=== PATIENT | male | born 1995 | race Caucasian/White ===

== ENCOUNTER 2018-03-24 19:11 | Emergency (ER) | payer BC, OTHER ==
[2018-03-24] MEDS: NS 1,000 ML IV (16:30)
[2018-03-24 16:45] LABS: HEMATOCRIT 44.9 % (42.0-52.0); HEMOGLOBIN 15.7 g/dl (13.5-17.5); MEAN CORPUSCULAR HEMOGLOBIN 30.7 pg (27.0-33.0); MEAN CORPUSCULAR VOLUME 87.9 fl (80.0-96.0); PLATELET COUNT, AUTOMATED 268 10^3/uL (150-450); RED BLOOD COUNT 5.11 10^6/uL (4.30-6.10); WHITE BLOOD COUNT 9.7 10^3/uL (4.0-10.0)
[2018-03-24 17:36] LABS: ALBUMIN 4.5 GM/DL (3.2-5.2); ALBUMIN/GLOBULIN RATIO 1.55 (1.00-1.93); ALKALINE PHOSPHATASE 60 U/L (45-117); ALT/SGPT 23 U/L (12-78); ANION GAP 12 MEQ/L (8-16); AST/SGOT 17 U/L (7-37); BILIRUBIN,DIRECT 0.2 MG/DL (0.0-0.2); BILIRUBIN,TOTAL 0.7 MG/DL (0.2-1.0); BLOOD UREA NITROGEN 10 MG/DL (7-18); CALCIUM LEVEL 9.1 MG/DL (8.5-10.1); CARBON DIOXIDE LEVEL 28 MEQ/L (21-32); CHLORIDE LEVEL 103 MEQ/L (98-107); CREATININE FOR GFR 0.77 MG/DL (0.70-1.30); ETHYL ALCOHOL (ETHANOL) 0.206 % (0.000-0.010); GLOMERULAR FILTRATION RATE > 60.0 (>60); GLUCOSE, FASTING 88 MG/DL (70-100); SALICYLATE LEVEL < 1.7 MG/DL (5.0-30.0); SODIUM LEVEL 143 MEQ/L (136-145); TOTAL PROTEIN 7.4 GM/DL (6.4-8.2)
[2018-03-24 17:46] LABS: ACETAMINOPHEN LEVEL < 2.0 UG/ML (10.0-30.0)
[2018-03-24 22:36] LABS: AMPHETAMINES LEVEL URINE NEGATIVE (NEGATIVE); BARBITURATES URINE NEGATIVE (NEGATIVE); BENZODIAZEPINES URINE NEGATIVE (NEGATIVE); CANNABINOIDS URINE NEGATIVE (NEGATIVE); COCAINE METABOLITE URINE NEGATIVE (NEGATIVE); METHADONE URINE NEGATIVE (NEGATIVE); OPIATES URINE NEGATIVE (NEGATIVE); PHENCYCLIDINE URINE NEGATIVE (NEGATIVE)
== END 2018-03-24 22:50 | disposition home or self-care (01) ==
LOC: M ED 19:11
DX: F43.0 Acute stress reaction (principal); F32.9 Major depressive disorder, single episode, unspecified; F10.129 Alcohol abuse with intoxication, unspecified; F84.0 Autistic disorder; F91.3 Oppositional defiant disorder; Z88.8 Allergy status to other drugs, medicaments and biological substances
CPT/HCPCS: G0480

== ENCOUNTER 2019-03-19 16:49 | Emergency (ER) | payer BC, SELFPAY ==
[~2019-03-19] VITALS: Ht 175.3 cm; Wt 67.6 kg
[2019-03-19 17:31] LABS: HEMATOCRIT 43.7 % (42.0-52.0); HEMOGLOBIN 15.2 g/dl (13.5-17.5); MEAN CORPUSCULAR HGB CONC 34.8 g/dl (32.0-36.5); MEAN CORPUSCULAR VOLUME 86.4 fl (80.0-96.0); PLATELET COUNT, AUTOMATED 290 10^3/uL (150-450); RED BLOOD COUNT 5.06 10^6/uL (4.30-6.10); WHITE BLOOD COUNT 7.9 10^3/uL (4.0-10.0)
[2019-03-19 18:11] LABS: ACETAMINOPHEN LEVEL < 2.0 UG/ML (10.0-30.0); ALBUMIN 4.3 GM/DL (3.2-5.2); ALT/SGPT 22 U/L (12-78); BILIRUBIN,DIRECT 0.3 MG/DL (0.0-0.2); BILIRUBIN,TOTAL 1.2 MG/DL (0.2-1.0); BLOOD UREA NITROGEN 14 MG/DL (7-18); CALCIUM LEVEL 9.9 MG/DL (8.5-10.1); CARBON DIOXIDE LEVEL 28 MEQ/L (21-32); CHLORIDE LEVEL 104 MEQ/L (98-107); CREATININE FOR GFR 0.85 MG/DL (0.70-1.30); ETHYL ALCOHOL (ETHANOL) < 0.003 % (0.000-0.010); GLOMERULAR FILTRATION RATE > 60.0 (>60); GLUCOSE, FASTING 85 MG/DL (70-100); SALICYLATE LEVEL < 1.7 MG/DL (5.0-30.0); SODIUM LEVEL 140 MEQ/L (136-145); TOTAL PROTEIN 7.6 GM/DL (6.4-8.2)
[2019-03-19 18:18] LABS: AMPHETAMINES LEVEL URINE NEGATIVE (NEGATIVE); BARBITURATES URINE NEGATIVE (NEGATIVE); BENZODIAZEPINES URINE NEGATIVE (NEGATIVE); CANNABINOIDS URINE POSITIVE (NEGATIVE); COCAINE METABOLITE URINE NEGATIVE (NEGATIVE); METHADONE URINE NEGATIVE (NEGATIVE); OPIATES URINE NEGATIVE (NEGATIVE); PHENCYCLIDINE URINE NEGATIVE (NEGATIVE)
[2019-03-20] MEDS ORDERED: NAPROXEN 250 MG TAB PO ONE (00:30)
[2019-03-20] MEDS ORDERED: LORazepam 1 MG TAB PO STA (01:33)
[2019-03-20] MEDS ORDERED: diphenhydrAMINE INJ 50MG/ML VIAL (J1200) IM STA (01:54)
[2019-03-20] MEDS ORDERED: HALOPERIDOL 5 MG/ML VIAL (J1630) IM STA (01:54)
[2019-03-20 03:07] VITALS: BP 153/106
--- NOTE | 2019-03-20 07:08 | REP ---
Clinical: Trauma left hand . Technique: AP, lateral views left hand . Findings: Lateral view demonstrates soft tissue swelling overlying the metacarpophalangeal joints. No obvious acute fracture, subcutaneous emphysema or foreign body appreciated. Impression: Swelling at the MCP level. No acute fracture or dislocation. Electronically Signed by Rajesh Gallegos MD 03/20/2019 06:59 A
--- NOTE | 2019-03-20 07:11 | ECGEPIP ---
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
[2019-04-06] MEDS ORDERED: FLUO20CA8 PO (15:23)
[2019-04-06] MEDS ORDERED: TRAZ-163 PO (15:23)
== END 2019-03-20 03:08 | disposition short-term general hospital (02) ==
LOC: M ED 16:49
DX: F33.9 Major depressive disorder, recurrent, unspecified (principal); R45.851 Suicidal ideations; I45.19 Other right bundle-branch block; R22.32 Localized swelling, mass and lump, left upper limb; F84.0 Autistic disorder; Z88.8 Allergy status to other drugs, medicaments and biological substances
CPT/HCPCS: 73120; 80048; 80076; 80307; 84443; 85027; 93005; 96372; 99285; G0480; J1200; J1630

== ENCOUNTER 2019-04-02 11:30 | Emergency (ER) | payer BC, SELFPAY ==
[~2019-04-02] VITALS: Ht 175.3 cm; Wt 69.0 kg
[2019-04-02 12:09] LABS: HEMATOCRIT 45.8 % (42.0-52.0); HEMOGLOBIN 15.7 g/dl (13.5-17.5); MEAN CORPUSCULAR HEMOGLOBIN 30.1 pg (27.0-33.0); MEAN CORPUSCULAR HGB CONC 34.3 g/dl (32.0-36.5); MEAN CORPUSCULAR VOLUME 87.9 fl (80.0-96.0); PLATELET COUNT, AUTOMATED 407 10^3/uL (150-450); RED BLOOD COUNT 5.21 10^6/uL (4.30-6.10); WHITE BLOOD COUNT 9.7 10^3/uL (4.0-10.0)
[2019-04-02 12:42] LABS: ACETAMINOPHEN LEVEL < 2.0 UG/ML (10.0-30.0); ALBUMIN 4.5 GM/DL (3.2-5.2); ALT/SGPT 18 U/L (12-78); BILIRUBIN,DIRECT 0.2 MG/DL (0.0-0.2); BILIRUBIN,TOTAL 0.9 MG/DL (0.2-1.0); BLOOD UREA NITROGEN 10 MG/DL (7-18); CALCIUM LEVEL 9.4 MG/DL (8.5-10.1); CARBON DIOXIDE LEVEL 30 MEQ/L (21-32); CHLORIDE LEVEL 104 MEQ/L (98-107); CREATININE FOR GFR 0.88 MG/DL (0.70-1.30); ETHYL ALCOHOL (ETHANOL) < 0.003 % (0.000-0.010); GLOMERULAR FILTRATION RATE > 60.0 (>60); GLUCOSE, FASTING 93 MG/DL (70-100); POTASSIUM SERUM 4.4 MEQ/L (3.5-5.1); SALICYLATE LEVEL < 1.7 MG/DL (5.0-30.0); SODIUM LEVEL 140 MEQ/L (136-145); TOTAL PROTEIN 7.9 GM/DL (6.4-8.2)
[2019-04-02 12:47] LABS: AMPHETAMINES LEVEL URINE NEGATIVE (NEGATIVE); BARBITURATES URINE NEGATIVE (NEGATIVE); BENZODIAZEPINES URINE NEGATIVE (NEGATIVE); CANNABINOIDS URINE POSITIVE (NEGATIVE); COCAINE METABOLITE URINE NEGATIVE (NEGATIVE); METHADONE URINE NEGATIVE (NEGATIVE); OPIATES URINE NEGATIVE (NEGATIVE); PHENCYCLIDINE URINE NEGATIVE (NEGATIVE)
[2019-04-02 14:44] VITALS: BP 131/75
[2019-04-06] MEDS ORDERED: TRAZ-163 PO (15:23)
[2019-04-06] MEDS ORDERED: FLUO20CA8 PO (15:23)
[2019-04-18] MEDS ORDERED: TRAZ-163 PO (09:03)
[2019-04-18] MEDS ORDERED: FLUO10CA8 PO (09:03)
== END 2019-04-02 14:55 | disposition home or self-care (01) ==
LOC: M ED 11:30
DX: F32.9 Major depressive disorder, single episode, unspecified (principal); F12.10 Cannabis abuse, uncomplicated; Z79.899 Other long term (current) drug therapy; Z88.8 Allergy status to other drugs, medicaments and biological substances
CPT/HCPCS: 36415; 80048; 80076; 80307; 84443; 85027; 99284; G0480

== ENCOUNTER 2019-04-05 21:59 | Inpatient (IN) | payer BC, MEDICAID ==
[~2019-04-05] VITALS: Ht 177.8 cm; Wt 68.4 kg
[2019-04-06] MEDS ORDERED: METOCLOPRAMIDE INJ 10MG/2ML VIAL (J2765) IV ONE (00:30)
[2019-04-06] MEDS ORDERED: KETOROLAC 30 MG/ML VIAL (J1885) IV ONE (00:30)
[2019-04-06 01:09] LABS: HEMATOCRIT 40.2 % (42.0-52.0); MEAN CORPUSCULAR HEMOGLOBIN 30.8 pg (27.0-33.0); MEAN CORPUSCULAR HGB CONC 34.8 g/dl (32.0-36.5); MEAN CORPUSCULAR VOLUME 88.4 fl (80.0-96.0); PLATELET COUNT, AUTOMATED 328 10^3/uL (150-450); RED BLOOD COUNT 4.55 10^6/uL (4.30-6.10)
[2019-04-06 01:48] LABS: ACETAMINOPHEN LEVEL < 2.0 UG/ML (10.0-30.0); ALBUMIN 4.2 GM/DL (3.2-5.2); ALT/SGPT 18 U/L (12-78); BILIRUBIN,DIRECT 0.2 MG/DL (0.0-0.2); BILIRUBIN,TOTAL 0.7 MG/DL (0.2-1.0); BLOOD UREA NITROGEN 11 MG/DL (7-18); CALCIUM LEVEL 8.9 MG/DL (8.5-10.1); CARBON DIOXIDE LEVEL 29 MEQ/L (21-32); CHLORIDE LEVEL 104 MEQ/L (98-107); CREATININE FOR GFR 0.68 MG/DL (0.70-1.30); ETHYL ALCOHOL (ETHANOL) < 0.003 % (0.000-0.010); GLOMERULAR FILTRATION RATE > 60.0 (>60); GLUCOSE, FASTING 96 MG/DL (70-100); POTASSIUM SERUM 4.5 MEQ/L (3.5-5.1); SALICYLATE LEVEL < 1.7 MG/DL (5.0-30.0); SODIUM LEVEL 139 MEQ/L (136-145); THYROID STIMULATING HORMONE 0.737 uIU/ML (0.358-3.740); TOTAL PROTEIN 7.2 GM/DL (6.4-8.2)
[2019-04-06 02:33] LABS: AMPHETAMINES LEVEL URINE NEGATIVE (NEGATIVE); BARBITURATES URINE NEGATIVE (NEGATIVE); BENZODIAZEPINES URINE NEGATIVE (NEGATIVE); CANNABINOIDS URINE POSITIVE (NEGATIVE); COCAINE METABOLITE URINE NEGATIVE (NEGATIVE); METHADONE URINE NEGATIVE (NEGATIVE); OPIATES URINE NEGATIVE (NEGATIVE); PHENCYCLIDINE URINE NEGATIVE (NEGATIVE)
[2019-04-06] MEDS ORDERED: RISP2TAB3 PO (15:23)
[2019-04-06] MEDS ORDERED: FLUO20CA20 PO (15:23)
[2019-04-06] MEDS ORDERED: TRAZ-257 PO (15:23)
[2019-04-06] MEDS ORDERED: FLUoxetine 20 MG CAP PO ONE (15:30)
[2019-04-06] MEDS ORDERED: traZODone 100 MG TAB PO ONE ×2 (15:30→21:00)
[2019-04-06] MEDS ORDERED: risperiDONE 2 MG TAB PO ONE ×2 (15:30→21:00)
[2019-04-07] MEDS ORDERED: FLUoxetine 20 MG CAP PO ONE ×3 (09:45→17:00)
[2019-04-07] MEDS ORDERED: HYDR50TA30 PO (10:27)
[2019-04-07] MEDS ORDERED: MAALOX 30 ML SUSP *UDC PO PRN (11:30)
[2019-04-07] MEDS ORDERED: ACETAMINOPHEN TAB 650MG DOSE (2X325MG) PO PRN (11:30)
[2019-04-07] MEDS ORDERED: MOM 30ML SUSPENSION UDC PO PRN (11:30)
[2019-04-07] MEDS ORDERED: NICOTINE 21MG/24HR 1 EA TRANSDERMAL TD PRN (11:30)
[2019-04-07 12:31] VITALS: BP 132/67
--- NOTE | 2019-04-07 12:32 | HPEPDOC ---
General Date of Admission Apr 07, 2019 at 11:21 Date of Service: Apr 07, 2019 Attending Physician: JULY ZEE MD Chief Complaint The patient is a 24-year-old male admitted with a reason for visit of Unspecified Depression. History of Present Illness Patient is a 24-year-old male, past medical history significant for depression and anxiety and polysubstance abuse with THC whose mother brought to the emergency room on account of concerns for suicidal ideation. Patient also reported seeing and hearing things. On assessment, he denies any physical symptoms other than back pain along his spine. He denies any radicular symptoms. He denies chills, fever, chest pain, shortness of breath. Home Medications Scheduled Fluoxetine Hcl (Fluoxetine HCl) 20 Mg Capsule, 20 MG PO QPM, (Reported) TAKES AT 1700 Risperidone (Risperidone) 2 Mg Tablet, 2 MG PO QHS, (Reported) Scheduled PRN Hydroxyzine HCl (Hydroxyzine HCl) 50 Mg Tablet, 50 MG PO Q4H PRN for ANXIETY, (Reported) Trazodone HCl (Trazodone HCl) 100 Mg Tablet, 100 MG PO QHS PRN for SLEEP, (Reported) Allergies Coded Allergies: atomoxetine (Verified Adverse Reaction, Severe, TACHYCARDIA, 03/19/19) aripiprazole (Verified Adverse Reaction, Mild, HAULLICINATION, 03/19/19) escitalopram (Verified Adverse Reaction, Mild, ALTERED MENTAL STATUS, 03/19/19) Past Medical History Medical History Depression Anxiety Surgical History Kidney stone removal Family History Denies any family history Social History Smokes cigarettes, drinks alcohol, also admits to THC use A-FIB/CHADSVASC A-FIB History Current/History of A-Fib/PAF?: No Current PO Anticoag Therapy: No Review of Systems Other systems A 10 point pertinent review of systems was completed, negative except as stated in the history of presenting illness. Physical Examination Other physical findings GENERAL: NAD SKIN : Warm, dry intact HEENT: Atraumatic, normocephalic, PERRL, moist mucous membrane CARDIOVASCULAR: Regular rate and rhythm, S1S2, no JVD, no edema, distal pulses + and palpable RESP: CTAB, no accessory muscle use noted ABDOMEN: BS+ non distended non tender MS: no joint deformities NEURO: Alert and oriented x 3, CN2-12 grossly intact PSYCH: no anxiety or agitation, depressed affect. Vital Signs Vital Signs Date Time Temp Pulse Resp B/P (MAP) Pulse Ox O2 Delivery O2 Flow Rate FiO2 04/07/19 06:39 98.2 73 20 109/58 (75) 96 Room Air Assessment/Plan Back pain Suicidal ideation Acute psychosis. Polysubstance abuse with THC Plan Patient currently has no medical comorbidities requiring active follow-up and management He will be prescribed as needed. Ibuprofen for complaints of pain to his back Management of acute psychosis, suicidal ideation and polysubstance abuse by primary team Plan / VTE VTE Prophylaxis Ordered?: No VTE Exclusion Mechanical Proph: Low Risk for VTE RODRIGO CHAUDHARIP Apr 07, 2019 12:32
[2019-04-07] MEDS ORDERED: IBUPROFEN 400 MG TAB PO PRN (13:45)
[2019-04-07] MEDS: traZODone 50 MG TAB PO PRN (21:59)
[2019-04-08 06:57] VITALS: BP 103/59
--- NOTE | 2019-04-08 10:43 | IPNPDOC ---
Date Seen The patient was seen on 04/08/19. Progress Note SUBJECTIVE: Pt c/o nightmares and unable to get good sleep. He denies any headache, sob, chest pain, cough, nausea, vomiting, abd pain OBJECTIVE: PHYSICAL EXAMINATION: VITALS: PLS SEE BELOW GENERAL: NAD SKIN : Warm, dry intact HEENT: Atraumatic, normocephalic, PERRL, moist mucous membrane CARDIOVASCULAR: Regular rate and rhythm, S1S2, no JVD, no edema, distal pulses + and palpable RESP: CTAB, no accessory muscle use noted ABDOMEN: BS+ non distended non tender MS: no joint deformities NEURO: Alert and oriented x 3, CN2-12 grossly intact PSYCH: no anxiety or agitation, depressed affect. LABORATORY DATA, IMAGING STUDIES,MICROBIOLOGY: PLS SEE BELOW ASSESSMENT AND PLAN: Patient is a 24-year-old male, past medical history significant for depression and anxiety and polysubstance abuse with THC whose mother brought to the emergency room on account of concerns for suicidal ideation. Patient also reported seeing and hearing things. On assessment, he denies any physical symptoms other than back pain along his spine. He denies any radicular symptoms. He denies chills, fever, chest pain, shortness of breath. Insomnia with c/o nightmares defer to psychiatrist Back pain prn ibuprofen Suicidal ideation defer to primary team Acute psychosis. defer to primary team Polysubstance abuse with THC cessation counselling provided. VS, I&O, 24H, Fishbone Vital Signs/I&O Vital Signs Date Time Temp Pulse Resp B/P (MAP) Pulse Ox O2 Delivery O2 Flow Rate FiO2 04/08/19 06:57 98.1 72 12 103/59 (74) 04/07/19 06:39 96 Room Air EL MCWILLIAMS MD Apr 08, 2019 09:09
--- NOTE | 2019-04-08 14:45 | MHHPEPDOC ---
[facility] History & Physical History and Physical DATE OF ADMISSION: Apr 07, 2019 at 11:21 New Patient Aleks Palumbo Age 24 Male Date of : 1995 Date of Service: 04/08/2019 Chief Complaint "My parents wanted me here." History of Present Illness The patient, a 24-year-old man presented to [facility] after being brought in after reportedly stating suicidal thoughts to his parents that were fairly concerning. Upon presentation, the patient expressed a fair amount of lassitude towards his suicidal thoughts. He has been recently admitted to inpatient units in [place], [place] and was deemed a high risk for suicide. When the patient was met with, he had a fairly bizarre flat affect, describing his situation in a fairly disconnected way. He relayed a history of fairly severe depressed mood with low energy, concentration problems, loss of interest and suicidal thoughts alternating with episodes of elation with impulsivity, driving his car very quickly that are difficult to tease apart from episodic versus chronic impulsivity. He describes having difficulty during periods of weeks where he will have distractibility and decreased need for sleep. Review Of Systems Depression: As above. Anxiety: The patient denies any excessive worry associated with physical symptoms. They deny any experience of discreet panic in the past. Leigh Ann: As above. Psychotic: The patient denies any experiences of auditory or visual hallucinations. They deny any episodes of paranoia or delusional thinking in the past Trauma: The patient denies any traumatic events associated with nightmares or intrusive thoughts. Borderline: The patient reports a history of being diagnosed with borderline, but when asked to describe his symptoms, he describes "I guess I don't." Past Psychiatric History The patient has a history of reported three inpatient admissions with diagnoses of bipolar and borderline personality disorder. He reports being tried on Prozac and risperidone on his most recent inpatient admission at [facility] and reports that he currently has no followup. When asked specifics about medications, he consistently defers to his "mother." He reports being tried on Abilify, but is allergic. He described that he doesn't know the reaction. Chart indicates a history of bad reactions to atomoxetine and Lexapro in the past. Allergies Please see below. Family Psychiatric History The patient denies/is unaware any history of mental health history including addictions and suicide. Social History The patient grew up in the local area, reportedly [place]. He described that he did not have any significant abuse growing up and that he currently lives with his parents. He is unemployed, applying for social security dis ability benefits. He described that he had attempted to graduate from high school, but had missed a significant amount of time and is short one math credit from graduating. He denies any significant legal troubles at this time. Substance Abuse History The patient reports fairly heavy consistent cannabis use, roughly 4 to 5 grams of dry herb per day. He reports previously being in rehab for alcohol of which he states he does not drink consistently at this time. He reports that he only drinks monthly, but will drink more than five at a time. He denies consistently using any illicit substances other than cannabis Medical History Patient has no significant past medical history. Mental Status Examination General: Well dressed with good hygiene Speech: Responsive only to questions Thought processes: Linear and logical MSK: Smooth and coordinated gait, no signs of tremors or involuntary orofacial movements Thought content: Lassitude Abstract reasoning, and computation: Intact Description of associations: [place] Description of abnormal or psychotic thoughts: Denies any suicidal thoughts at this time, but states that if he did, he wouldn't tell this provider. Denies any homicidal ideation. Denies any auditory or visual hallucination. Does not appear to be responding to internal stimuli and does not appear to be endorsing any bizarre or paranoid ideation Judgment: Poor Insight: Poor Orientation: Alert and orientated 3 Cognition: Grossly normal Recent and remote memory: Intact Attention span and concentration: Intact Fund of knowledge: Adequate Mood: "fine" Affect: Profoundly blunted Diagnoses Bipolar disorder, unspecified. Cannabis use disorder, severe. Alcohol use disorder, severe. Assessment and Plan The patient, a 24-year-old man with multiple inpatient admissions and reported poor response to treatment. He does appear to be a relatively poor historian, which is unclear whether is related to being guarded or whether he generally has difficulty remembering. The patient does have some elements of bipolar that are difficult to tease out as the patient is fairly concrete. It is clear that he is likely suffering a fairly severe depressive episode and his lassitude related to suicide is fairly concerning. Disposition The patient will need greater than two midnights of inpatient treatment in order to treat his severe depression and ensure his safety due to recent concerning ideation and behaviors. Problem List 1. Depression. 2. Substance use. 3. Risk for suicide. Initial Treatment Plan 1. Patient was admitted on a 9.39 legal status. 2. Complete history was obtained. 3. With patients permission, family will be contacted and database will be expanded. 4. Patients medication regimen will be reviewed and changed accordingly. 5. Patient will be provided with protected environment. 6. Patient will be treated with individual, group, and milieu therapies. 7. Patient will receive supportive psych-education. 8. Discharge planning will commence immediately. 9. Outpatient follow-up treatment will be strongly recommended. 10. The initial treatment plan will focus initially on: Starting Latuda 20 mg at night with a titration quickly up for bipolar depression. Discussed the risks, benefits and potential side effects of this regiment as well as alternatives. We will not start CIWA at this time as the patient reports not using alcohol recently and had a negative BAL on admission. We will monitor if any vital sign dysregulation with low threshold. Estimated Length Of Stay 5 days. Time Spent 45 minutes. Wednesday Vital Signs Vital Signs Date Time Temp Pulse Resp B/P (MAP) Pulse Ox O2 Delivery O2 Flow Rate FiO2 04/08/19 06:57 98.1 72 12 103/59 (74) 04/07/19 06:39 96 Room Air Medications Scheduled Fluoxetine Hcl (Fluoxetine HCl) 20 Mg Capsule, 20 MG PO QPM, (Reported) TAKES AT 1700 Risperidone (Risperidone) 2 Mg Tablet, 2 MG PO QHS, (Reported) Scheduled PRN Hydroxyzine HCl (Hydroxyzine HCl) 50 Mg Tablet, 50 MG PO Q4H PRN for ANXIETY, (Reported) Trazodone HCl (Trazodone HCl) 100 Mg Tablet, 100 MG PO QHS PRN for SLEEP, (Reported) Allergies Coded Allergies: atomoxetine (Verified Adverse Reaction, Severe, TACHYCARDIA, 03/19/19) aripiprazole (Verified Adverse Reaction, Mild, HAULLICINATION, 03/19/19) escitalopram (Verified Adverse Reaction, Mild, ALTERED MENTAL STATUS, 03/19/19) FRANCIA SAUCEDA DO Apr 08, 2019 14:45
[2019-04-08 18:00] VITALS: BP 134/86
[2019-04-08] MEDS: LURASIDONE 20 MG TAB (LATUDA) PO SCH (18:03)
[2019-04-09 07:05] VITALS: BP 124/58
[2019-04-09] MEDS ORDERED: LORazepam 1 MG TAB PO ONE (13:30)
--- NOTE | 2019-04-09 17:35 | MHIPNPDOC ---
[facility] Progress Note Progress Note Inpatient Progress Note Aleks Palumbo Age 24 Male Date of : 1995 Date of Service: 04/09/2019 History of Present Illness The patient, a 24 year old man with a likely history of bipolar disorder as well as alcohol use disorder and cannabis use disorders, presents to [facility] with suicidal statements that were concerning to his parents where he was brought in. He has a interesting lassitude to his suicidal statements with a fairly flat affect. Interval History The patient is met with today. Nursing reports concerns that the patient has been not eating. When asked, the patient describes that he's on an "ketogenic diet and doesn't eat before 12". Upon further discussions, the patient appears to be endorsing that he is fasting today, but denies that it is related to a low appetite. Nurses relayed that he is very rarely social and is very difficult to engage, almost to a point of being mute with some bizarre ideation expressed. He describes that he hasn't noticed any effects from the Latuda at this time. Review Of Systems Denies any side effects from Latuda such as GI discomfort, tremors or other concerning side effects. Admits to continued low mood. Psychotherapy None on this visit. Vital Signs Reviewed. Mental Status Examination General: Fair hygiene Speech: Spontaneous and fluid Thought processes: Linear and logical MSK: Smooth and coordinated gait, no signs of tremors or involuntary orofacial movements Thought content: Perseverative Abstract reasoning, and computation: [place] Description of associations: Loosened Description of abnormal or psychotic thoughts: Denies any suicidal or homicidal ideation. Does endorse some confusing ideation about diet. Does not appear to be responding to internal stimuli. Denies any audio or visual hallucinations. Judgment: Poor Insight: Poor Orientation: Alert and orientated 3 Cognition: Grossly normal Recent and remote memory: Intact Attention span and concentration: Intact Fund of knowledge: Adequate Mood: "okay" Affect: Profoundly flat Diagnoses Bipolar disorder, Type I, most recent episode depressed Cannabis use disorder, severe Alcohol use disorder, severe Unspecified psychosis rule out catatonia Assessment and Plan The patient, a 24 year old young man who presents in a fairly dysthymic state, does appear to be endorsing some unusual ideation. It's not clear whether this is related to profound depression with psychotic features or whether he's developing catatonia which is a common sequelae of severe depression. Continue Latuda 20 mg at night with an Ativan challenge of 1 mg to determine if this reduces the reported mutism and lack of eating. If not, then we'll likely need to increase neuroleptic dose significantly. After this note had been written, the patient was tried on ativan with reported great results the patient became very social and engaged from a prior state of being nearly mute, he was noted to have been singing Karoke and much less bizarre. Ativan changed to standing 1mg BID for likely catatonia secondary to depression Disposition The patient will need a further inpatient admission as he is fairly distorted and confused with some bizarre ideation. Time Spent 15 minutes [id number]. Wednesday Vital Signs Vital Signs Date Time Temp Pulse Resp B/P (MAP) Pulse Ox O2 Delivery O2 Flow Rate FiO2 04/09/19 07:05 97.9 65 12 124/58 (80) 04/07/19 06:39 96 Room Air Current Medications Current Medications Acetaminophen (Tylenol Tab) 650 mg Q6HP PRN PO HEADACHE or DISCOMFORT; Start 04/07/19 at 11:30 Al Hydrox/Mg Hydrox/Simethicone (Mylanta) 30 ml Q4HP PRN PO HEARTBURN/ INDIGESTION; Start 04/07/19 at 11:30 Home Med (Med Rec Complete!) ASDIRECTED XX ; Start 04/07/19 at 10:30; Stop 04/07/19 at 10:43; Status DC Ibuprofen (Advil) 400 mg Q6HP PRN PO PAIN; Start 04/07/19 at 13:45 Lurasidone HCl (Latuda) 20 mg DAILY@18 PO Last administered on 04/08/19at 18:03; Start 04/08/19 at 18:00 Magnesium Hydroxide (Milk Of Magnesia) 30 ml DAILYPRN PRN PO CONSTIPATION; Start 04/07/19 at 11:30 Nicotine (Nicoderm Cq 21mg) 1 patch DAILY PRN TD SMOKING CESSATION; Start 04/07/19 at 11:30 Trazodone HCl (Desyrel) 50 mg QHSP PRN PO INSOMNIA Last administered on 04/07/19at 21:59; Start 04/07/19 at 11:30 Allergies Coded Allergies: atomoxetine (Verified Adverse Reaction, Severe, TACHYCARDIA, 03/19/19) aripiprazole (Verified Adverse Reaction, Mild, HAULLICINATION, 03/19/19) escitalopram (Verified Adverse Reaction, Mild, ALTERED MENTAL STATUS, 03/19/19) FRANCIA SAUCEDA DO Apr 09, 2019 17:35
[2019-04-09] MEDS: LURASIDONE 20 MG TAB (LATUDA) PO SCH (17:42)
[2019-04-09 18:00] VITALS: BP 107/66
[2019-04-09] MEDS: LORazepam 1 MG TAB PO SCH (21:00)
--- NOTE | 2019-04-09 21:43 | IPNPDOC ---
Date Seen The patient was seen on 04/09/19. Progress Note SUBJECTIVE: Per RN , patient has not been eating much. Pt c/o insomnia bu t not wanting any meds. OBJECTIVE: PHYSICAL EXAMINATION: VITALS: PLS SEE BELOW GENERAL: NAD SKIN : Warm, dry intact HEENT: Atraumatic, normocephalic, PERRL, moist mucous membrane CARDIOVASCULAR: Regular rate and rhythm, S1S2, no JVD, no edema, distal pulses + and palpable RESP: CTAB, no accessory muscle use noted ABDOMEN: BS+ non distended non tender MS: no joint deformities NEURO: Alert and oriented x 3, CN2-12 grossly intact PSYCH: no anxiety or agitation, depressed affect. LABORATORY DATA, IMAGING STUDIES,MICROBIOLOGY: PLS SEE BELOW ASSESSMENT AND PLAN: Patient is a 24-year-old male, past medical history significant for depression and anxiety and polysubstance abuse with THC whose mother brought to the emergency room on account of concerns for suicidal ideation. Patient also reported seeing and hearing things. On assessment, he denies any physical symptoms other than back pain along his spine. He denies any radicular symptoms. He denies chills, fever, chest pain, shortness of breath. Insomnia with c/o nightmares defer to psychiatrist Back pain prn ibuprofen Suicidal ideation defer to primary team Acute psychosis. defer to primary team Polysubstance abuse with THC cessation counselling provided. VS, I&O, 24H, Fishbone Vital Signs/I&O Vital Signs Date Time Temp Pulse Resp B/P (MAP) Pulse Ox O2 Delivery O2 Flow Rate FiO2 04/08/19 18:00 98.0 83 16 134/86 (102) 04/07/19 06:39 96 Room Air EL MCWILLIAMS MD Apr 09, 2019 05:44
[2019-04-09] MEDS: traZODone 50 MG TAB PO PRN (21:52)
[2019-04-10 07:05] VITALS: BP 130/63
[2019-04-10] MEDS: LORazepam 1 MG TAB PO SCH ×2 (09:00→21:00)
--- NOTE | 2019-04-10 10:27 | MHIPNPDOC ---
[facility] Progress Note Progress Note DATE OF SERVICE: 04/10/19 HISTORY: The patient, a 24-year-old man presented to [facility] after being brought in after reportedly stating suicidal thoughts to his parents that were fairly concerning. Upon presentation, the patient expressed a fair amount of lassitude towards his suicidal thoughts. He has been recently admitted to inpatient units in [place], [place] and was deemed a high risk for suicide. When the patient was met with, he had a fairly bizarre flat affect, describing his situation in a fairly disconnected way. He relayed a history of fairly severe depressed mood with low energy, concentration problems, loss of interest and suicidal thoughts alternating with episodes of elation with impulsivity, driving his car very quickly that are difficult to tease apart from episodic versus chronic impulsivity. He describes having difficulty during periods of weeks where he will have distractibility and decreased need for sleep. VITAL SIGNS: See below. NEW TEST RESULTS: See below. CURRENT MEDICATIONS: See below. MENTAL STATUS EXAMINATION: Patient is a 24-year old male, who is clean and dressed in hospital attire Speech: Is reg rate/rhythm/volume Language skills are good Thought processes including: egocentric, superior to others, women aren't intelligent and very biased, linear, illogical Thought content: "this world is awful and I'm smarter than everyone... nothing to live for" denies intent/plan for suicide, denies HI, has passive SI Abstract reasoning, and computation: biased. Description of associations: biased. Description of abnormal or psychotic thoughts: denies hallucinations, delusions Judgment: poor Insight: poor Orientation: x3 Recent and remote memory:intact Attention span and concentration: good Language: appropriate Fund of knowledge: limited by bias Mood: "life sucks" Affect: depressed, irritable, superior to all others, flat DIAGNOSES: Mood d/o unspecified R/O Major Depression disorder R/O Antisocial vs Narcissistic Personality D/O ASSESSMENT:Pt seen and state he's here b/c this world sucks and people are stupid. States he's smarter than everyone and states women are stupid and only work to reach a position in society and that men and him in fact is smarter than them. States their facts and names unknown things he's read to face his opinions on. States his opinions are facts. Very egotistical and superior to others. Very disrespectful to myself, staff, peer pt. He appears irritable, depressed and flat. He endorses passive SI. Denies intent/plan for suicide. Denies HI, hallucinations, delusions. MANAGEMENT PLAN: continue plan. Ativan 1 mg BID PO Latuda 20 mg DAILY@18 Trazodone 50 mg QHSP PRN PO INSOMNIA TIME SPENT: 30 minutes. Vital Signs Vital Signs Date Time Temp Pulse Resp B/P (MAP) Pulse Ox O2 Delivery O2 Flow Rate FiO2 04/10/19 07:05 96.7 65 12 130/63 (85) 04/07/19 06:39 96 Room Air Laboratory Data 24H Labs Laboratory Tests 2 04/10/19 09:47: CBC/BMP Current Medications Current Medications Acetaminophen (Tylenol Tab) 650 mg Q6HP PRN PO HEADACHE or DISCOMFORT; Start 04/07/19 at 11:30 Al Hydrox/Mg Hydrox/Simethicone (Mylanta) 30 ml Q4HP PRN PO HEARTBURN/INDIGESTION; Start 04/07/19 at 11:30 Home Med (Med Rec Complete!) ASDIRECTED XX ; Start 04/07/19 at 10:30; Stop 04/07/19 at 10:43; Status DC Ibuprofen (Advil) 400 mg Q6HP PRN PO PAIN; Start 04/07/19 at 13:45 Lorazepam (Ativan) 1 mg BID PO ; Start 04/09/19 at 21:00 Lurasidone HCl (Latuda) 20 mg DAILY@18 PO Last administered on 04/09/19at 17:42; Start 04/08/19 at 18:00 Magnesium Hydroxide (Milk Of Magnesia) 30 ml DAILYPRN PRN PO CONSTIPATION; Start 04/07/19 at 11:30 Nicotine (Nicoderm Cq 21mg) 1 patch DAILY PRN TD SMOKING CESSATION; Start 04/07/19 at 11:30 Trazodone HCl (Desyrel) 50 mg QHSP PRN PO INSOMNIA Last administered on 04/09/19at 21:52; Start 04/07/19 at 11:30 Allergies Coded Allergies: atomoxetine (Verified Adverse Reaction, Severe, TACHYCARDIA, 03/19/19) aripiprazole (Verified Adverse Reaction, Mild, HAULLICINATION, 6/23/19) escitalopram (Verified Adverse Reaction, Mild, ALTERED MENTAL STATUS, 03/19/19) CALE WARD DO Apr 10, 2019 10:27 am
[2019-04-10 10:38] LABS: BLOOD UREA NITROGEN 14 MG/DL (7-18); CALCIUM LEVEL 9.3 MG/DL (8.5-10.1); CARBON DIOXIDE LEVEL 30 MEQ/L (21-32); CHLORIDE LEVEL 106 MEQ/L (98-107); CREATININE FOR GFR 0.96 MG/DL (0.70-1.30); GLOMERULAR FILTRATION RATE > 60.0 (>60); GLUCOSE, FASTING 83 MG/DL (70-100); POTASSIUM SERUM 4.3 MEQ/L (3.5-5.1); SODIUM LEVEL 140 MEQ/L (136-145)
[2019-04-10] MEDS ORDERED: FLUoxetine 20 MG CAP PO ONE (12:15)
[2019-04-10] MEDS: LURASIDONE 20 MG TAB (LATUDA) PO SCH (18:07)
[2019-04-10 18:12] VITALS: BP 127/68
[2019-04-11 06:50] VITALS: BP 98/53
[2019-04-11] MEDS: LORazepam 1 MG TAB PO SCH ×2 (09:00→20:30)
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
[2019-04-11] MEDS: FLUoxetine 20 MG CAP PO SCH (10:18)
[2019-04-11] MEDS: LURASIDONE 20 MG TAB (LATUDA) PO SCH (18:00)
[2019-04-11 18:34] VITALS: BP 122/70
[2019-04-12 06:28] VITALS: BP 127/77
[2019-04-12] MEDS: LORazepam 1 MG TAB PO SCH ×2 (09:00→20:23)
[2019-04-12] MEDS: FLUoxetine 20 MG CAP PO SCH (09:44)
--- NOTE | 2019-04-12 11:09 | MHIPNPDOC ---
[facility] Progress Note Progress Note DATE OF SERVICE: 04/12/19 HISTORY: The patient, a 24-year-old man presented to [facility] after being brought in after reportedly stating suicidal thoughts to his parents that were fairly concerning. Upon presentation, the patient expressed a fair amount of lassitude towards his suicidal thoughts. He has been recently admitted to inpatient units in [place], [place] and was deemed a high risk for suicide. When the patient was met with, he had a fairly bizarre flat affect, describing his situation in a fairly disconnected way. He relayed a history of fairly severe depressed mood with low energy, concentration problems, loss of interest and suicidal thoughts alternating with episodes of elation with impulsivity, driving his car very quickly that are difficult to tease apart from episodic versus chronic impulsivity. He describes having difficulty during periods of weeks where he will have distractibility and decreased need for sleep. VITAL SIGNS: See below. NEW TEST RESULTS: See below. CURRENT MEDICATIONS: See below. MENTAL STATUS EXAMINATION: Patient is a 24-year old male, who is clean and dressed in hospital attire Speech: Is reg rate/rhythm/volume Language skills are good Thought processes including: linear, illogical Thought content: decreasing egotistical cognitive distortions, denies SI/HI Abstract reasoning, and computation: biased. Description of associations: biased. Description of abnormal or psychotic thoughts: denies hallucinations, delusions Judgment: poor Insight: poor Orientation: x3 Recent and remote memory:intact Attention span and concentration: good Language: appropriate Fund of knowledge: limited by bias Mood: "better" Affect: less depressed, less irritable, improved range, disingenuous (smirks often in agreement) DIAGNOSES: Mood d/o unspecified R/O Major Depression disorder R/O Antisocial vs Narcissistic Personality D/O ASSESSMENT:Pt seen and is more respectful and open-minded. Has been reading about Buddism which he founds helpful as he's able to understand is emotions and why he feels anger at times and then becomes purposely disrespectful to push people away "b/c I felt like I should be alone". States he's socializing with peers, listening to others more, and is more accepting of the thoughts of others. Mood and anxiety are improved. States he does not like ativan as it makes him feel sedated and would like to stop it. Has only taken once or twice during admission, not regularly. States he's tolerating his latuda and prozac and finding them beneficial. He endorses less depression and irritable. Possibly just agreeing with me to be d/c as he does come across in his answers as disingenuous (smirking). He denies passive SI. Denies intent/plan for suici de. Denies HI, hallucinations, delusions. MANAGEMENT PLAN: continue plan. Latuda 20 mg DAILY@18 Trazodone 50 mg QHSP PRN PO INSOMNIA Prozac 20mg daily TIME SPENT: 30 minutes. Vital Signs Vital Signs Date Time Temp Pulse Resp B/P (MAP) Pulse Ox O2 Delivery O2 Flow Rate FiO2 04/12/19 06:28 97.2 63 18 127/77 (94) 04/07/19 06:39 96 Room Air Current Medications Current Medications Acetaminophen (Tylenol Tab) 650 mg Q6HP PRN PO HEADACHE or DISCOMFORT; Start 04/07/19 at 11:30 Al Hydrox/Mg Hydrox/Simethicone (Mylanta) 30 ml Q4HP PRN PO HEARTBURN/INDIGESTION; Start 04/07/19 at 11:30 Fluoxetine HCl (PROzac) 20 mg DAILY PO Last administered on 04/12/19at 09:44; Start 04/11/19 at 09:00 Home Med (Med Rec Complete!) ASDIRECTED XX ; Start 04/07/19 at 10:30; Stop 04/07/19 at 10:43; Status DC Ibuprofen (Advil) 400 mg Q6HP PRN PO PAIN Last administered on 04/10/19at 18:07; Start 04/07/19 at 13:45 Lorazepam (Ativan) 1 mg BID PO ; Start 04/09/19 at 21:00 Lurasidone HCl (Latuda) 20 mg DAILY@18 PO Last administered on 04/10/19at 18:07; Start 04/08/19 at 18:00 Magnesium Hydroxide (Milk Of Magnesia) 30 ml DAILYPRN PRN PO CONSTIPATION; Start 04/07/19 at 11:30 Nicotine (Nicoderm Cq 21mg) 1 patch DAILY PRN TD SMOKING CESSATION; Start 04/07/19 at 11:30 Trazodone HCl (Desyrel) 50 mg QHSP PRN PO INSOMNIA Last administered on 04/09/19at 21:52; Start 04/07/19 at 11:30 Allergies Coded Allergies: atomoxetine (Verified Adverse Reaction, Severe, TACHYCARDIA, 03/19/19) aripiprazole (Verified Adverse Reaction, Mild, HAULLICINATION, 03/19/19) escitalopram (Verified Adverse Reaction, Mild, ALTERED MENTAL STATUS, 03/19/19) CALE WARD DO Apr 12, 2019 11:09 am
[2019-04-12] MEDS: LURASIDONE 20 MG TAB (LATUDA) PO SCH (18:00)
[2019-04-12 18:32] VITALS: BP 134/73
[2019-04-13] MEDS: LORazepam 1 MG TAB PO SCH (09:00)
[2019-04-13] MEDS: FLUoxetine 20 MG CAP PO SCH (09:36)
--- NOTE | 2019-04-13 10:09 | MHIPNPDOC ---
[facility] Progress Note Progress Note DATE OF SERVICE: 04/13/19 HISTORY: The patient, a 24-year-old man presented to [facility] after being brought in after reportedly stating suicidal thoughts to his parents that were fairly concerning. Upon presentation, the patient expressed a fair amount of lassitude towards his suicidal thoughts. He has been recently admitted to inpatient units in [place], [place] and was deemed a high risk for suicide. When the patient was met with, he had a fairly bizarre flat affect, describing his situation in a fairly disconnected way. He relayed a history of fairly severe depressed mood with low energy, concentration problems, loss of interest and suicidal thoughts alternating with episodes of elation with impulsivity, driving his car very quickly that are difficult to tease apart from episodic versus chronic impulsivity. He describes having difficulty during periods of weeks where he will have distractibility and decreased need for sleep. VITAL SIGNS: See below. NEW TEST RESULTS: See below. CURRENT MEDICATIONS: See below. MENTAL STATUS EXAMINATION: Patient is a 24-year old male, who is clean and dressed in hospital attire Speech: Is reg rate/rhythm/volume Language skills are good Thought processes including: linear, illogical Thought content: decreasing egotistical cognitive distortions, denies SI/HI Abstract reasoning, and computation: biased. Description of associations: less biased. Description of abnormal or psychotic thoughts: denies hallucinations, delusions Judgment: poor Insight: poor Orientation: x3 Recent and remote memory:intact Attention span and concentration: good Language: appropriate Fund of knowledge: limited by bias Mood: "ok" Affect: less depressed, less irritable, improved range, disingenuous (smirks often in agreement) DIAGNOSES: Mood d/o unspecified R/O Major Depression disorder R/O Antisocial vs Narcissistic Personality D/O ASSESSMENT:Pt seen and continues to be more respectful and open-minded. Is reading a book about happiness to improve overall life that he's finding educational and helpful. States his mood is improved as "my lows aren't as low." Agreeable to increasing his prozac that he's tolerating well for improved treatment of mood. States he's socializing with peers, listening to others more, and is more accepting of the thoughts of others. Mood and anxiety are improved. States he's tolerating his latuda and prozac and finding them beneficial. He endorses less depression and irritable. Possibly just agreeing with me to be d/c as he does come across in his answers as disingenuous (smirking). He denies passive SI. Encouraged to attend all groups to learn coping mechanisms and improve social skills with others. Denies intent/plan for suicide. Denies HI, hallucinations, delusions. MANAGEMENT PLAN: continue plan. increase prozac Latuda 20 mg DAILY@18 Trazodone 50 mg QHSP PRN PO INSOMNIA Prozac 30mg daily TIME SPENT: 30 minutes. Vital Signs Vital Signs Date Time Temp Pulse Resp B/P (MAP) Pulse Ox O2 Delivery O2 Flow Rate FiO2 04/12/19 18:32 99.7 69 16 134/73 (93) 04/07/19 06:39 96 Room Air Current Medications Current Medications Acetaminophen (Tylenol Tab) 650 mg Q6HP PRN PO HEADACHE or DISCOMFORT; Start 04/07/19 at 11:30 Al Hydrox/Mg Hydrox/Simethicone (Mylanta) 30 ml Q4HP PRN PO HEARTBURN/INDIGESTION; Start 04/07/19 at 11:30 Fluoxetine HCl (PROzac) 20 mg DAILY PO Last administered on 04/13/19at 09:36; Start 04/11/19 at 09:00 Home Med (Med Rec Complete!) ASDIRECTED XX ; Start 04/07/19 at 10:30; Stop 04/07/19 at 10:43; Status DC Ibuprofen (Advil) 400 mg Q6HP PRN PO PAIN Last administered on 04/10/19at 18:07; Start 04/07/19 at 13:45 Lorazepam (Ativan) 1 mg BID PO ; Start 04/09/19 at 21:00 Lurasidone HCl (Latuda) 20 mg DAILY@18 PO Last administered on 04/10/19at 18:07; Start 04/08/19 at 18:00 Magnesium Hydroxide (Milk Of Magnesia) 30 ml DAILYPRN PRN PO CONSTIPATION; Start 04/07/19 at 11:30 Nicotine (Nicoderm Cq 21mg) 1 patch DAILY PRN TD SMOKING CESSATION; Start 04/07/19 at 11:30 Trazodone HCl (Desyrel) 50 mg QHSP PRN PO INSOMNIA Last administered on 7/14/19at 21:52; Start 04/07/19 at 11:30 Allergies Coded Allergies: atomoxetine (Verified Adverse Reaction, Severe, TACHYCARDIA, 03/19/19) aripiprazole (Verified Adverse Reaction, Mild, HAULLICINATION, 03/19/19) escitalopram (Verified Adverse Reaction, Mild, ALTERED MENTAL STATUS, 03/19/19) CALE WARD DO Apr 13, 2019 9:56 am
[2019-04-13] MEDS ORDERED: FLUoxetine 10 MG CAP PO ONE (10:30)
[2019-04-13] MEDS: LURASIDONE 20 MG TAB (LATUDA) PO SCH (17:57)
[2019-04-13 18:00] VITALS: BP 100/56
[2019-04-14 06:45] VITALS: BP 121/69
[2019-04-14] MEDS: FLUoxetine 10 MG CAP PO SCH (08:43)
--- NOTE | 2019-04-14 10:22 | MHIPNPDOC ---
[facility] Progress Note Progress Note DATE OF SERVICE: 04/14/19 HISTORY: The patient, a 24-year-old man presented to [facility] after being brought in after reportedly stating suicidal thoughts to his parents that were fairly concerning. Upon presentation, the patient expressed a fair amount of lassitude towards his suicidal thoughts. He has been recently admitted to inpatient units in [place], [place] and was deemed a high risk for suicide. When the patient was met with, he had a fairly bizarre flat affect, describing his situation in a fairly disconnected way. He relayed a history of fairly severe depressed mood with low energy, concentration problems, loss of interest and suicidal thoughts alternating with episodes of elation with impulsivity, driving his car very quickly that are difficult to tease apart from episodic versus chronic impulsivity. He describes having difficulty during periods of weeks where he will have distractibility and decreased need for sleep. VITAL SIGNS: See below. NEW TEST RESULTS: See below. CURRENT MEDICATIONS: See below. MENTAL STATUS EXAMINATION: Patient is a 24-year old male, who is clean and dressed in hospital attire Speech: Is reg rate/rhythm/volume Language skills are good Thought processes including: linear, logical, lacks ability to future plan possibly due to depression and unvoiced SI Thought content: depressed, lacks ability to future plan possibly due to depression and unvoiced SI, denies SI/HI Abstract reasoning, and computation: intact. Description of associations: appropriate Description of abnormal or psychotic thoughts: denies hallucinations, delusions Judgment: poor Insight: poor Orientation: x3 Recent and remote memory:intact Attention span and concentration: good Language: appropriate Fund of knowledge: average Mood: "ok" Affect: more depressed, flat, constricted DIAGNOSES: Mood d/o unspecified R/O Major Depression disorder R/O Antisocial vs Narcissistic Personality D/O ASSESSMENT:Pt seen and appears depressed, flat, withdrawn today despite increase in prozac. Discussed what he want for his future and unable to state any future planning which is very concerning regarding risk for suicide in the future. Will monitor for improved depression, constricted/flat affect, and future planning for himself post d/c. States he's tolerating his latuda and prozac and finding them beneficial. He endorses less anxiety, irritability. He seems flat today. Possibly just agreeing with me to be d/c as he does come across in his answers as disingenuous (smirking). Encouraged to attend all groups to learn coping mechanisms and improve social skills with others. Denies intent/plan for suicide. Denies HI, hallucinations, delusions. MANAGEMENT PLAN: continue plan. Latuda 20 mg DAILY@18 Trazodone 50 mg QHSP PRN PO INSOMNIA Prozac 30mg daily TIME SPENT: 30 minutes. Vital Signs Vital Signs Date Time Temp Pulse Resp B/P (MAP) Pulse Ox O2 Delivery O2 Flow Rate FiO2 04/14/19 06:45 98.1 73 12 121/69 (86) Current Medications Current Medications Acetaminophen (Tylenol Tab) 650 mg Q6HP PRN PO HEADACHE or DISCOMFORT; Start 04/07/19 at 11:30 Al Hydrox/Mg Hydrox/Simethicone (Mylanta) 30 ml Q4HP PRN PO HEARTBURN/INDIGESTION; Start 04/07/19 at 11:30 Fluoxetine HCl (PROzac) 20 mg DAILY PO Last administered on 04/13/19at 09:36; Start 04/11/19 at 09:00; Stop 04/13/19 at 10:11; Status DC Fluoxetine HCl (PROzac) 30 mg DAILY PO Last administered on 04/14/19at 08:43; Start 04/14/19 at 09:00 Home Med (Med Rec Complete!) ASDIRECTED XX ; Start 04/07/19 at 10:30; Stop 04/07/19 at 10:43; Status DC Ibuprofen (Advil) 400 mg Q6HP PRN PO PAIN Last administered on 04/10/19at 18:07; Start 04/07/19 at 13:45 Lorazepam (Ativan) 1 mg BID PO ; Start 04/09/19 at 21:00; Stop 04/13/19 at 09:57; Status DC Lurasidone HCl (Latuda) 20 mg DAILY@18 PO Last administered on 04/10/19at 18:07; Start 04/08/19 at 18:00 Magnesium Hydroxide (Milk Of Magnesia) 30 ml DAILYPRN PRN PO CONSTIPATION; Start 04/07/19 at 11:30 Nicotine (Nicoderm Cq 21mg) 1 patch DAILY PRN TD SMOKING CESSATION; Start 04/07/19 at 11:30 Trazodone HCl (Desyrel) 50 mg QHSP PRN PO INSOMNIA Last administered on 04/09/19at 21:52; Start 04/07/19 at 11:30 Allergies Coded Allergies: atomoxetine (Verified Adverse Reaction, Severe, TACHYCARDIA, 03/19/19) aripiprazole (Verified Adverse Reaction, Mild, HAULLICINATION, 03/19/19) escitalopram (Verified Adverse Reaction, Mild, ALTERED MENTAL STATUS, 03/19/19) CALE WARD DO Apr 14, 2019 10:22 am
[2019-04-14] MEDS: LURASIDONE 20 MG TAB (LATUDA) PO SCH (17:37)
[2019-04-14 18:00] VITALS: BP 139/92
[2019-04-15 06:39] VITALS: BP 114/66
[2019-04-15] MEDS: FLUoxetine 10 MG CAP PO SCH ×2 (09:00→13:07)
[2019-04-15] MEDS: LURASIDONE 20 MG TAB (LATUDA) PO SCH (18:00)
[2019-04-15 18:15] VITALS: BP 135/68
[2019-04-16 06:44] VITALS: BP 106/59
[2019-04-16] MEDS: FLUoxetine 10 MG CAP PO SCH (12:15)
[2019-04-16] MEDS: LURASIDONE 20 MG TAB (LATUDA) PO SCH (18:00)
[2019-04-16 18:21] VITALS: BP 113/69
[2019-04-17 06:20] VITALS: BP 94/50
[2019-04-17] MEDS: FLUoxetine 10 MG CAP PO SCH (09:25)
--- NOTE | 2019-04-17 10:50 | MHIPNPDOC ---
[facility] Progress Note Progress Note DATE OF SERVICE: 04/17/19 HISTORY: The patient, a 24-year-old man presented to [facility] after being brought in after reportedly stating suicidal thoughts to his parents that were fairly concerning. Upon presentation, the patient expressed a fair amount of lassitude towards his suicidal thoughts. He has been recently admitted to inpatient units in [place], [place] and was deemed a high risk for suicide. When the patient was met with, he had a fairly bizarre flat affect, describing his situation in a fairly disconnected way. He relayed a history of fairly severe depressed mood with low energy, concentration problems, loss of interest and suicidal thoughts alternating with episodes of elation with impulsivity, driving his car very quickly that are difficult to tease apart from episodic versus chronic impulsivity. He describes having difficulty during periods of weeks where he will have distractibility and decreased need for sleep. VITAL SIGNS: See below. NEW TEST RESULTS: See below. CURRENT MEDICATIONS: See below. MENTAL STATUS EXAMINATION: Patient is a 24-year old male, who is clean and dressed in hospital attire Speech: Is reg rate/rhythm/volume Language skills are good Thought processes including: linear, logical Thought content: denies SI/HI Abstract reasoning, and computation: intact. Description of associations: appropriate Description of abnormal or psychotic thoughts: denies hallucinations, delusions Judgment: fair Insight: fair Orientation: x3 Recent and remote memory:intact Attention span and concentration: good Language: appropriate Fund of knowledge: average Mood: "ok" Affect: mildly depressed and less constricted DIAGNOSES: Mood d/o unspecified R/O Major Depression disorder R/O Antisocial vs Narcissistic Personality D/O ASSESSMENT:Pt seen and states he had a good weekend and denies depression. States he's getting a long better with people. Treatment team stated this am that pt had a good week, attended groups, and was respectful of others. States he's tolerating his latuda and prozac and finding them beneficial. He endorses less anxiety, denies irritability. He seems mildly depressed today. Encouraged to attend all groups to learn coping mechanisms and improve social skills with others. Denies SII/HI, hallucinations, delusions. Feels safe here. MANAGEMENT PLAN: continue plan. Latuda 20 mg DAILY@18 Trazodone 50 mg QHSP PRN PO INSOMNIA Prozac 30mg daily TIME SPENT: 30 minutes. Vital Signs Vital Signs Date Time Temp Pulse Resp B/P (MAP) Pulse Ox O2 Delivery O2 Flow Rate FiO2 04/17/19 06:20 97.8 67 14 94/50 (65) Current Medications Current Medications Acetaminophen (Tylenol Tab) 650 mg Q6HP PRN PO HEADACHE or DISCOMFORT; Start 04/07/19 at 11:30 Al Hydrox/Mg Hydrox/Simethicone (Mylanta) 30 ml Q4HP PRN PO HEARTBURN/INDIGESTION; Start 04/07/19 at 11:30 Fluoxetine HCl (PROzac) 20 mg DAILY PO Last administered on 04/13/19at 09:36; Start 04/11/19 at 09:00; Stop 04/13/19 at 10:11; Status DC Fluoxetine HCl (PROzac) 30 mg DAILY PO Last administered on 04/17/19at 09:25; Start 04/14/19 at 09:00 Home Med (Med Rec Complete!) ASDIRECTED XX ; Start 04/07/19 at 10:30; Stop 04/07/19 at 10:43; Status DC Ibuprofen (Advil) 400 mg Q6HP PRN PO PAIN Last administered on 04/10/19at 18:07; Start 04/07/19 at 13:45 Lorazepam (Ativan) 1 mg BID PO ; Start 04/09/19 at 21:00; Stop 04/13/19 at 09:57; Status DC Lurasidone HCl (Latuda) 20 mg DAILY@18 PO Last administered on 04/10/19at 18:07; Start 04/08/19 at 18:00 Magnesium Hydroxide (Milk Of Magnesia) 30 ml DAILYPRN PRN PO CONSTIPATION; Start 04/07/19 at 11:30 Nicotine (Nicoderm Cq 21mg) 1 patch DAILY PRN TD SMOKING CESSATION; Start 04/07/19 at 11:30 Trazodone HCl (Desyrel) 50 mg QHSP PRN PO INSOMNIA Last administered on 04/09/19at 21:52; Start 04/07/19 at 11:30 Allergies Coded Allergies: atomoxetine (Verified Adverse Reaction, Severe, TACHYCARDIA, 03/19/19) aripiprazole (Verified Adverse Reaction, Mild, HAULLICINATION, 03/19/19) escitalopram (Verified Adverse Reaction, Mild, ALTERED MENTAL STATUS, 03/19/19) CALE WARD DO Apr 17, 2019 10:50 am
[2019-04-17] MEDS: LURASIDONE 20 MG TAB (LATUDA) PO SCH (17:39)
[2019-04-17 18:00] VITALS: BP 136/84
[2019-04-18 06:37] VITALS: BP 93/63
[2019-04-18] MEDS: FLUoxetine 10 MG CAP PO SCH (09:02)
[2019-04-18] MEDS ORDERED: LATU20TA PO (09:03)
[2019-04-18] MEDS ORDERED: FLUO10CA15 PO (09:03)
[2019-04-18] MEDS ORDERED: HYDR50TA30 PO (09:03)
[2019-04-18] MEDS ORDERED: TRAZ-257 PO (09:03)
--- NOTE | 2019-04-18 09:05 | MHDSPDOC ---
[facility] Discharge Summary Discharge Summary DATE OF ADMISSION: Apr 07, 2019 at 11:21 am DATE OF DISCHARGE: April 18, 2019 DISCHARGE DIAGNOSES: Mood d/o unspecified R/O Major Depression disorder R/O Antisocial vs Narcissistic Personality D/O REASON FOR ADMISSION: The patient, a 24-year-old man presented to [facility] after being brought in after reportedly stating suicidal thoughts to his parents that were fairly concerning. Upon presentation, the patient e xpressed a fair amount of lassitude towards his suicidal thoughts. He has been recently admitted to inpatient units in [place], [place] and was deemed a high risk for suicide. When the patient was met with, he had a fairly bizarre flat affect, describing his situation in a fairly disconnected way. He relayed a history of fairly severe depressed mood with low energy, concentration problems, loss of interest and suicidal thoughts alternating with episodes of elation with impulsivity, driving his car very quickly that are difficult to tease apart from episodic versus chronic impulsivity. He describes having difficulty during periods of weeks where he will have distractibility and decreased need for sleep. CONSULTANTS INVOLVED: none TREATMENT AND PROGRESS ON THE UNIT : Pt was admitted to [facility], seen for psychiatric assessment and restarted on his outpatient medication prozac in creased to 30mg daily and latuda 20mg qhs. He was provided trazodone 50mg qhs prn insomnia. Pt found his medications beneficial and tolerated them well. He attended groups daily during his stay. His symptoms improved with treatment. He became more open mindful, social, and respectful of others during treatment which he liked and felt better doing. On day of discharge he denied depression, anxiety, insomnia, SI/HI, hallucinations, delusions. He was discharged home after family meeting with his parents with follow-up at [facility]. He felt safe for discharge. DISCHARGE ASSESSMENT: Pt seen and states his mood is good and is looking forward to going home today with his parents. States he's getting a long better with people and socializing with them which he likes. Treatment team stated this am that pt had a good week, attended groups, and was respectful of others. States he's tolerating his latuda and prozac and finding them beneficial. He denies anxiety, denies irritability. He appears euthymic and full range today. He is attending groups to learn coping mechanisms and improve social skills with others thru out his treatment and is finding them beneficial. Denies depression, anxiety, insomnia, SI/HI, hallucinations, delusions. Feels safe to be discharged home with his parents. MENTAL STATUS EXAMINATION ON DISCHARGE: Patient is a 24-year old male, who is clean and dressed in hospital attire Speech: Is reg rate/rhythm/volume Language skills are good Thought processes including: linear, logical Thought content: denies SI/HI Abstract reasoning, and computation: intact. Description of associations: appr opriate Description of abnormal or psychotic thoughts: denies hallucinations, delusions Judgment: fair-good Insight: fair-good Orientation: x3 Recent and remote memory:intact Attention span and concentration: good Language: appropriate Fund of knowledge: average Mood: "good" Affect: euthymic, full MEDICATIONS ON DISCHARGE: Latuda 20 mg daily Trazodone 100 mg qhs prn insomnia Prozac 30mg daily atarax 50mg q6hr prn anxiety PLAN/FOLLOWUP ARRANGEMENTS: D/c home with his parents with follow-up at [facility]. The amount of time spent in the coordination of care for this patient was approximately 30 minutes. Vital Signs/I&Os Vital Signs Date Time Temp Pulse Resp B/P (MAP) Pulse Ox O2 Delivery O2 Flow Rate FiO2 04/18/19 06:37 98.0 64 12 93/63 (73) Medications Scheduled Fluoxetine Hcl (Fluoxetine HCl) 20 Mg Capsule, 20 MG PO QPM, (Reported) TAKES AT 1700 Risperidone (Risperidone) 2 Mg Tablet, 2 MG PO QHS, (Reported) Scheduled PRN Hydroxyzine HCl (Hydroxyzine HCl) 50 Mg Tablet, 50 MG PO Q4H PRN for ANXIETY, (Reported) Trazodone HCl (Trazodone HCl) 100 Mg Tablet, 100 MG PO QHS PRN for SLEEP, (Reported) Allergies Coded Allergies: atomoxetine (Verified Adverse Reaction, Severe, TACHYCARDIA, 03/19/19) aripiprazole (Verified Adverse Reaction, Mild, HAULLICINATION, 03/19/19) escitalopram (Verified Adverse Reaction, Mild, ALTERED MENTAL STATUS, 03/19/19) CALE WARD DO Apr 18, 2019 9:05 am
[2019-08-17] MEDS ORDERED: FLUO10CA15 PO (08:47)
== END 2019-04-18 12:20 | disposition home or self-care (01) | DRG 754 ==
LOC: M ED 21:59 → M ED INP 04-07 11:21 → M PSY 04-07 11:55
PROVIDERS: ADMIT Psychiatry & Neurology Psychiatry; ATTEND Psychiatry & Neurology Psychiatry
DX: F32.9 Major depressive disorder, single episode, unspecified (principal); R45.851 Suicidal ideations; F60.2 Antisocial personality disorder; F60.81 Narcissistic personality disorder; Z88.8 Allergy status to other drugs, medicaments and biological substances; G47.00 Insomnia, unspecified; M54.5 Low back pain

== ENCOUNTER 2019-08-08 15:35 | Inpatient (IN) | payer BC, MEDICAID ==
[~2019-08-08] VITALS: Ht 175.3 cm; Wt 91.7 kg
[~2019-08-08 15:35] MED LIST: FLUO10CA8 PO; FLUO20CA8 PO; HYDR50TA30 PO; LATU20TA PO; RISP2TAB3 PO; TRAZ-163 PO
[2019-08-08 16:40] LABS: HEMATOCRIT 48.9 % (42.0-52.0); HEMOGLOBIN 16.5 g/dl (13.5-17.5); MEAN CORPUSCULAR HEMOGLOBIN 30.3 pg (27.0-33.0); MEAN CORPUSCULAR HGB CONC 33.7 g/dl (32.0-36.5); MEAN CORPUSCULAR VOLUME 89.7 fl (80.0-96.0); PLATELET COUNT, AUTOMATED 316 10^3/uL (150-450); RED BLOOD COUNT 5.45 10^6/uL (4.30-6.10); WHITE BLOOD COUNT 9.9 10^3/uL (4.0-10.0)
[2019-08-08 17:07] LABS: ACETAMINOPHEN LEVEL < 2.0 UG/ML (10.0-30.0); ALBUMIN 4.8 GM/DL (3.2-5.2); ALT/SGPT 17 U/L (12-78); BILIRUBIN,DIRECT 0.3 MG/DL (0.0-0.2); BILIRUBIN,TOTAL 1.4 MG/DL (0.2-1.0); BLOOD UREA NITROGEN 9 MG/DL (7-18); CALCIUM LEVEL 10.2 MG/DL (8.5-10.1); CARBON DIOXIDE LEVEL 30 MEQ/L (21-32); CHLORIDE LEVEL 103 MEQ/L (98-107); CREATININE FOR GFR 0.93 MG/DL (0.70-1.30); ETHYL ALCOHOL (ETHANOL) < 0.003 % (0.000-0.010); GLOMERULAR FILTRATION RATE > 60.0 (>60); GLUCOSE, FASTING 94 MG/DL (70-100); SALICYLATE LEVEL < 1.7 MG/DL (5.0-30.0); SODIUM LEVEL 138 MEQ/L (136-145); TOTAL PROTEIN 7.8 GM/DL (6.4-8.2)
[2019-08-08 18:41] LABS: AMPHETAMINES LEVEL URINE NEGATIVE (NEGATIVE); BARBITURATES URINE NEGATIVE (NEGATIVE); BENZODIAZEPINES URINE NEGATIVE (NEGATIVE); CANNABINOIDS URINE NEGATIVE (NEGATIVE); COCAINE METABOLITE URINE NEGATIVE (NEGATIVE); METHADONE URINE NEGATIVE (NEGATIVE); OPIATES URINE NEGATIVE (NEGATIVE); PHENCYCLIDINE URINE NEGATIVE (NEGATIVE)
[2019-08-08] MEDS ORDERED: MAALOX 30 ML SUSP *UDC PO PRN (20:45)
[2019-08-08] MEDS ORDERED: NICOTINE 21MG/24HR 1 EA TRANSDERMAL TD PRN (20:45)
[2019-08-08] MEDS ORDERED: MOM 30ML SUSPENSION UDC PO PRN (20:45)
[2019-08-08] MEDS ORDERED: traZODone 50 MG TAB PO PRN (20:45)
[2019-08-08] MEDS ORDERED: ACETAMINOPHEN TAB 650MG DOSE (2X325MG) PO PRN (20:45)
[2019-08-08] MEDS ORDERED: hydrOXYzine 50 MG TAB PO PRN (21:00)
[2019-08-08] MEDS ORDERED: ALPRAZolam 0.5 MG TAB PO ONE (21:15)
[2019-08-08 22:17] VITALS: BP 141/70
[2019-08-09 06:29] VITALS: BP 111/56
[2019-08-09] MEDS ORDERED: LURASIDONE 20 MG TAB (LATUDA) PO SCH (08:00)
[2019-08-09] MEDS: FLUoxetine 10 MG CAP PO SCH (08:24)
--- NOTE | 2019-08-09 11:48 | MHHPEPDOC ---
General Date Of Admission: Aug 08, 2019 Legal Status: 9.39 Chief Complaint "I want to harm Jews." History of Present Illness HISTORY OF THE PRESENT ILLNESS: Patient is a 24 -year-old , male, with a history of depression and borderline/antisocial PD last admitted [facility] 04/18/19 who was referred to ED by [facility] after pt had seen therapist there and appear internally preoccupied with HI toward "Jews and their community," fixated on races and religions. Once home pt mother called crisis line requesting a "mental health eval b/c my son isn't doing well." Pt in ED stated he believed his mother called the police and not the crisis line b/c she's ashamed of the things she's done and is blaming him for it. Past Psychiatric History Previous Psychiatric Diagnosis: mood d/o unspecified, cannabis/alcohol use d/o, cluster b traits Previous Psychiatric Admissions: 2 prior admission [facility] 04/18/19 for SI, 1 admission in [place] Suicide Attempts: denies Psychiatric Follow-up: [facility], noncompliant Psychiatric medications: prozac and risperidone in the past; allergy to lexapro, abilify, atomoxetine; last d/c on Latuda, current on none Past Medical History Medical Problems denies Head Injury: No Seizures: No Hospitalizations: No Surgeries: Yes (lithrotripsy) Family Medical/Psychiatric HX Medical Problems noncontributory Psychiatric Disorders: No Addiction: No Suicide Attemps/Completions: No Addiction History alcohol (once monthly, has gone to rehab for alcohol in past), other (history of cannabis use, utox all neg) Social History Childhood: born and raised in [place] in 2 parent home with siblings. States not a good childhood as her parents were verbally abusive Abuse/Trauma: parents were verbally abusive Current Living Situation: lives with parents in [place] Education: high school edu but did not graduate due to insufficient math credits Employment: unemployed, attempting to get social security disability benefits Social Support: parents Legal: denies Marital: single, never , no kids Mental Status Examination General Appearance: well groomed, appears stated age, hospital scubs/clothing Build: average Demeanor: preoccupied, other (superior) Eye Contact: average Activity: average Behavior: cooperative, other (superior, egotistical) Speech: clear, spontaneous, reg/rate,rhythm,volume Mood: euthymic Mood "fine" Affect: full, inappropriate, congruent, other (superior, egotistical) Thought Process: associative, other (illogical thoughts regarding Jews, women, the occult) Thought Content (Delusions): denies SI, HI, AVH, delusions (grandiose predominatly spiritism oriented toward a belief of being superior to Jews and women, belief Jews have a "secret" holy book that they keep from non-Jews that dictates non-Jews being cattle.) Thought Content (Other): preoccupied, obsessional, ideas of reference Thought Content (Aggressive): none reported Perception (Hallucinations): none reported Perception (Other): none reported Cognition (Impairment of): none reported Cognition(Intelligence Est.): average Oriented: Awake, Alert, Oriented times three Insight: poor (very) Judgment: Poor (very) Psychosis: Associations, Psychotic Perceptions Diagnoses Grandiose/Presybeterian Delusional D/O Hx of MDD Hx of cannabis/alcohol use d/o A-FIB/CHADSVASC A-FIB History Current/History of A-Fib/PAF?: No Assessment pt seen and states he's here b/c "my mother thoughts I wasn't doing well" b/c she told him she didn't love his father anymore and "called you guys to blame it on me." Denies that he having SI/HI and states he's been doing well since the last time he was here. States that when he was talking about the Illuminate which he states is a real thing, ranting and raving about. Also stated that 'Armando Hull" is a el worth $10 trillion and "the [employer] [place] pimp their children out." He then went on to tell me that Jews based on their bible that all non-Gnosticism are cattle and that Jews believe they are better than non-Jews, are satans b/c their stare is a satan worshiping star, then states he's part of the occult and things due to being in the occult he is all knowing and better than anyone not in the occult specifically Jews and woman. His judgement and insight are very poor and he's comes across very superior and egotistical. Initial Treatment Plan 1. Patient was admitted on a 9.39 status. 2. Complete history was obtained. 3. With patients permission, family will be contacted and database will be expanded. 4. Patients medication regimen will be reviewed and changed accordingly. 5. Patient will be provided with protected environment. 6. Patient will be treated with individual, group, and milieu therapies. 7. Patient will receive supportive psych-education. 8. Discharge planning will commence immediately. 9. Outpatient follow-up treatment will be strongly recommended. 10. The initial treatment plan will focus initially on: * Depression. * Risk for suicide. 11. invega 3mg bid ESTIMATED LENGTH OF STAY: 5-7 DAYS. TIME SPENT COUNSELING AND COORDINATING INITIAL CARE: minutes. Vital Signs Vital Signs Date Time Temp Pulse Resp B/P (MAP) Pulse Ox O2 Delivery O2 Flow Rate FiO2 08/09/19 08:12 Room Air 08/09/19 06:29 98.7 61 16 111/56 (74) 08/08/19 22:17 97 Laboratory Data 24H Labs Laboratory Tests 2 08/08/19 16:05: Anion Gap 5L, Glomerular Filtration Rate > 60.0, Calcium Level 10.2H, Total Bilirubin 1.4H, Direct Bilirubin 0.3H, Aspartate Amino Transf (AST/SGOT) 13, Alanine Aminotransferase (ALT/SGPT) 17, Alkaline Phosphatase 87, Total Protein 7.8, Albumin 4.8, Albumin/Globulin Ratio 1.60, Thyroid Stimulating Hormone (TSH) 1.390, Salicylates Level < 1.7L, Acetaminophen Level < 2.0L, Ethyl Alcohol Level < 0.003 08/08/19 16:06: Nucleated Red Blood Cells % (auto) 0.0 08/08/19 18:01: Urine Opiates Screen NEGATIVE, Urine Methadone Screen NEGATIVE, Urine Barbiturates Screen NEGATIVE, Urine Phencyclidine Screen NEGATIVE, Urine Amphetamines Screen NEGATIVE, Urine Benzodiazepines Screen NEGATIVE, Urine Cocaine Metabolite Screen NEGATIVE, Urine Cannabinoids Screen NEGATIVE CBC/BMP Laboratory Tests 08/08/19 16:05 08/08/19 16:06 Medications No Active Prescriptions or Reported Meds Allergies Coded Allergies: atomoxetine (Verified Adverse Reaction, Severe, TACHYCARDIA, 03/19/19) aripiprazole (Verified Adverse Reaction, Mild, HAULLICINATION, 03/19/19) escitalopram (Verified Adverse Reaction, Mild, ALTERED MENTAL STATUS, 03/19/19) CALE WARD DO Aug 09, 2019 11:03 am
[2019-08-09] MEDS ORDERED: PALIPERIDONE 3 MG ER TAB (INVEGA) PO ONE (12:00)
--- NOTE | 2019-08-09 13:16 | HPEPDOC ---
[facility] Medical History & Physical Date of Admission Aug 08, 2019 Date of Service: Aug 09, 2019 History and Physical CHIEF COMPLAINT: Argument with mother HISTORY OF PRESENT ILLNESS: Patient is a 24M with reported history depression and substance use reported that he is in the hospital after getting in an argument with his mother and his mother called to get him admitted. He does note a history of depression but denies any suicidal ideation nor any physical complaints stating that he feels well. Denies any chest pain, SOB, fever, chills or any other complaints. He states that he uses marijuana and alcohol occasionally but denies recent use. PAST MEDICAL HISTORY: Refer to [facility] PAST SURGICAL HISTORY: kidney stone removal SOCIAL HISTORY: Denies tobacco Reports social alcohol use and occasional marijuana use FAMILY HISTORY: grand father- CAD Depression and alcoholism in family members on both sides ALLERGIES: Please see below. REVIEW OF SYSTEMS: 10 point review of system negative except as stated in HPI HOME MEDICATIONS: Please see below. PHYSICAL EXAMINATION: General: No acute distress, Alert Eyes: Normal sclera, EOMI, DAIANA HENT: Atraumatic Cardiovascular: Normal rate, normal rhythm. Pulmonary: Clear to auscultation b/l, no wheezing GI: Soft, nontender, nondistended Skin: Warm and dry Neuro: CN grossly intact. No focal deficits. Strengths equal b/l. Psych: oriented x 3 LABORATORY DATA: See below. MICROBIOLOGY: Please see below. ASSESSMENT AND PLAN: 1. Depression - evaluate and treat per psych. 2. hyperbilirubinemia - mildly elevated asymptomatic total bilirubin. - likely incidental finding 2/2 alcohol and marijuana use. - liver enzymes and alkphos WNL. - Recommend alcohol and drug cessation. Can be monitored and repeat as outpatient. No active medical problems at this time. Please call back if further assistance needed. Vital Signs Vital Signs Date Time Temp Pulse Resp B/P (MAP) Pulse Ox O2 Delivery O2 Flow Rate FiO2 08/09/19 08:12 Room Air 08/09/19 06:29 98.7 61 16 111/56 (74) 08/08/19 22:17 97 Laboratory Data Labs 24H Laboratory Tests 2 08/08/19 16:05: Anion Gap 5L, Glomerular Filtration Rate > 60.0, Calcium Level 10.2H, Total Bilirubin 1.4H, Direct Bilirubin 0.3H, Aspartate Amino Transf (AST/SGOT) 13, Alanine Aminotransferase (ALT/SGPT) 17, Alkaline Phosphatase 87, Total Protein 7.8, Albumin 4.8, Albumin/Globulin Ratio 1.60, Thyroid Stimulating Hormone (TSH) 1.390, Salicylates Level < 1.7L, Acetaminophen Level < 2.0L, Ethyl Alcohol Level < 0.003 08/08/19 16:06: Nucleated Red Blood Cells % (auto) 0.0 08/08/19 18:01: Urine Opiates Screen NEGATIVE, Urine Methadone Screen NEGATIVE, Urine Barbiturates Screen NEGATIVE, Urine Phencyclidine Screen NEGATIVE, Urine Amphetamines Screen NEGATIVE, Urine Benzodiazepines Screen NEGATIVE, Urine Cocaine Metabolite Screen NEGATIVE, Urine Cannabinoids Screen NEGATIVE CBC/BMP Laboratory Tests 08/08/19 16:05 08/08/19 16:06 Home Medications No Active Prescriptions or Reported Meds Allergies Coded Allergies: atomoxetine (Verified Adverse Reaction, Severe, TACHYCARDIA, 03/19/19) aripiprazole (Verified Adverse Reaction, Mild, HAULLICINATION, 03/19/19) escitalopram (Verified Adverse Reaction, Mild, ALTERED MENTAL STATUS, 03/19/19) A-FIB/CHADSVASC A-FIB History Current/History of A-Fib/PAF?: No SUSANA JIMENEZ MD Aug 09, 2019 13:16
[2019-08-09] MEDS ORDERED: OLANZapine 10 MG TAB PO PRN (14:45)
[2019-08-09 16:27] VITALS: BP 121/69
[2019-08-09 16:28] VITALS: BP 138/90
[2019-08-09] MEDS: PALIPERIDONE 3 MG ER TAB (INVEGA) PO SCH (21:00)
[2019-08-10 06:17] VITALS: BP 133/68
[2019-08-10] MEDS: PALIPERIDONE 3 MG ER TAB (INVEGA) PO SCH ×2 (08:30→21:01)
[2019-08-10] MEDS: FLUoxetine 10 MG CAP PO SCH (08:30)
--- NOTE | 2019-08-10 10:28 | MHIPNPDOC ---
[facility] Progress Note Progress Note DATE OF SERVICE: 08/10/19 HISTORY: Patient is a 24 -year-old , male, with a history of depression and borderline/antisocial PD last admitted [facility] 04/18/19 who was referred to ED by [facility] after pt had seen therapist there and appear internally preoccupied with HI toward "Jews and their community," fixated on races and religions. Once home pt mother called crisis line requesting a "mental health eval b/c my son isn't doing well." Pt in ED stated he believed his mother called the police and not the crisis line b/c she's ashamed of the things she's done and is blaming him for it. Pt seen and states he's here b/c "my mother thoughts I wasn't doing well" b/c she told him she didn't love his father anymore and "called you guys to blame it on me." Denies that he having SI/HI and states he's been doing well since the last time he was here. States that when he was talking about the Illuminate which he states is a real thing, ranting and raving about. Also stated that 'Armando Hull" is a el worth $10 trillion and "the [employer] of [place] pimp their children out." He then went on to tell me that Jews based on their bible that all non-Anabaptist are cattle and that Jews believe they are better than non-Jews, are satans b/c their stare is a satan worshiping star, then states he's part of the occult and things due to being in the occult he is all knowing and better than anyone not in the occult specifically Jews and woman. His judgement and insight are very poor and he's comes across very superior and egotistical. VITAL SIGNS: See below. NEW TEST RESULTS: See below CURRENT MEDICATIONS: See below. MENTAL STATUS EXAMINATION: General Appearance: well groomed, appears stated age, hospital scrubs/clothing Build: average Demeanor: preoccupied, other (superior) Eye Contact: average Activity: average Behavior: cooperative, other (superior, egotistical) Speech: clear, spontaneous, reg/rate,rhythm,volume Mood: euthymic Mood "fine" Affect: full, inappropriate, congruent, other (superior, egotistical) Thought Process: associative, other (illogical thoughts regarding Jews, women, the occult), very racist thoughts Thought Content (Delusions): denies SI, HI, AVH, delusions (grandiose predominatly mu-ism oriented toward a belief of being superior to Jews and women, belief Jews have a "secret" holy book that they keep from non-Jews that dictates non-Jews being cattle.) Thought Content (Other): preoccupied, obsessional, ideas of reference Thought Content (Aggressive): none reported Perception (Hallucinations): none reported Perception (Other): none reported Cognition (Impairment of): none reported Cognition(Intelligence Est.): average Oriented: Awake, Alert, Oriented times three Insight: poor (very) Judgment: Poor (very) Psychosis: Associations, Psychotic Perceptions DIAGNOSES: Grandiose/Yarsani Delusional D/O Hx of MDD Hx of cannabis/alcohol use d/o ASSESSMENT:Pt had to be put on group restriction due to disruptive, racist behavior (toward women and people of different races/religions) during group. Pt seen and continues to talk of inferior races "all white people are sheep" b/c it says it in the Scientologist bible and Jews are in control of everything from government to business. Talked of women being of lower standing, stupid, unworthy. States he's more intelligent than most people even me b/c he know's more. Discuss though's regarding Americans and how "they're invading my country... Jews brought them here." His facts he believes are incorrect and along the lines of severe racist thoughts. Believes women and people of different races are inferior. Has never met a Scientologist person and refuses to speak with any 's on the unit "Why would I do". Pt called me a "stupid women" and stated he's so smart he can cure cancer. States he slept well last night. Per d/c strategic planner is disrespectful toward women, 's on unit, believes all people are "murders." MANAGEMENT PLAN: continue plan Medications: invega 3mg bid zyprexa 10mg q4hr prn anxiety/agitation vistaril 25mg q6hr prn anxiety TIME SPENT: 30 minutes. Vital Signs Vital Signs Date Time Temp Pulse Resp B/P (MAP) Pulse Ox O2 Delivery O2 Flow Rate FiO2 08/10/19 06:17 98.0 82 16 133/68 (89) 08/09/19 08:12 Room Air 08/08/19 22:17 97 Current Medications Current Medications Medications (Trade) Dose Ordered Sig/Lorenza Route PRN Reason Start Time Stop Time Status Last Admin Dose Admin Acetaminophen (Tylenol Tab) 650 mg Q6HP PRN PO HEADACHE or DISCOMFORT 08/08/19 20:45 Al Hydrox/Mg Hydrox/Simethicone (Mylanta) 30 ml Q4HP PRN PO HEARTBURN/INDIGESTION 08/08/19 20:45 Fluoxetine HCl (PROzac) 30 mg DAILY PO 08/09/19 09:00 Home Med (Med Rec Complete!) ASDIRECTED XX 08/08/19 21:15 08/08/19 21:18 DC Hydroxyzine HCl (Atarax) 50 mg Q6HP PRN PO ANXIETY/AGITATION 08/08/19 21:00 Lurasidone HCl (Latuda) 20 mg DAILY@08 PO 08/09/19 08:00 08/09/19 11:49 DC Magnesium Hydroxide (Milk Of Magnesia) 30 ml DAILYPRN PRN PO CONSTIPATION 08/08/19 20:45 Nicotine (Nicoderm Cq 21mg) 1 patch DAILY PRN TD Nicotine withdrawal 08/08/19 20:45 Olanzapine (ZyPREXA) 10 mg Q4HP PRN PO anxiety/agitation 08/09/19 14:45 08/09/19 14:54 Paliperidone (Invega) 3 mg BID PO 08/09/19 21:00 Trazodone HCl (Desyrel) 100 mg QHSP PRN PO INSOMNIA 08/08/19 20:45 Allergies Coded Allergies: atomoxetine (Verified Adverse Reaction, Severe, TACHYCARDIA, 03/19/19) aripiprazole (Verified Adverse Reaction, Mild, HAULLICINATION, 03/19/19) escitalopram (Verified Adverse Reaction, Mild, ALTERED MENTAL STATUS, 03/19/19) CALE WARD DO Aug 10, 2019 10:28 am
[2019-08-10 15:32] VITALS: BP 98/55
[2019-08-11 07:00] VITALS: BP 100/51
[2019-08-11] MEDS: PALIPERIDONE 3 MG ER TAB (INVEGA) PO SCH ×2 (08:29→22:17)
[2019-08-11] MEDS: FLUoxetine 10 MG CAP PO SCH (08:30)
--- NOTE | 2019-08-11 11:06 | MHIPNPDOC ---
[facility] Progress Note Progress Note DATE OF SERVICE: 08/11/19 HISTORY: Patient is a 24 -year-old , male, with a history of depression and borderline/antisocial PD last admitted [facility] 04/18/19 who was referred to ED by KB after pt had seen therapist there and appear internally preoccupied with HI toward "Jews and their community," fixated on races and religions. Once home pt mother called crisis line requesting a "mental health eval b/c my son isn't doing well." Pt in ED stated he believed his mother called the police and not the crisis line b/c she's ashamed of the things she's done and is blaming him for it. Pt seen and states he's here b/c "my mother thoughts I wasn't doing well" b/c she told him she didn't love his father anymore and "called you guys to blame it on me." Denies that he having SI/HI and states he's been doing well since the last time he was here. States that when he was talking about the Illuminate which he states is a real thing, ranting and raving about. Also stated that 'Armando Hull" is a el worth $10 trillion and "the [employer] of [place] pimp their children out." He then went on to tell me that Jews based on their bible that all non-Religious are cattle and that Jews believe they are better than non-Jews, are satans b/c their stare is a satan worshiping star, then states he's part of the occult and things due to being in the occult he is all knowing and better than anyone not in the occult specifically Jews and woman. His judgement and insight are very poor and he's comes across very superior and egotistical. VITAL SIGNS: See below. NEW TEST RESULTS: See below CURRENT MEDICATIONS: See below. MENTAL STATUS EXAMINATION: General Appearance: well groomed, appears stated age, hospital scrubs/clothing Build: average Demeanor: preoccupied, other (superior) Eye Contact: average Activity: average Behavior: cooperative, other (superior, egotistical) Speech: clear, spontaneous, reg/rate,rhythm,volume Mood: euthymic Mood "fine" Affect: full, inappropriate, congruent, other (superior, egotistical) Thought Process: associative, other (illogical thoughts regarding Jews, women, the occult), very racist thoughts Thought Content (Delusions): denies SI, HI, AVH, delusions (grandiose predominatly moravian oriented toward a belief of being superior to Jews and women, belief Jews have a "secret" holy book that they keep from non-Jews that dictates non-Jews being cattle.) Thought Content (Other): preoccupied, obsessional, ideas of reference Thought Content (Aggressive): none reported Perception (Hallucinations): none reported Perception (Other): none reported Cognition (Impairment of): none reported Cognition(Intelligence Est.): average Oriented: Awake, Alert, Oriented times three Insight: poor (very) Judgment: Poor (very) Psychosis: Associations, Psychotic Perceptions 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 Seen in his room today and acting more respectful toward me today. States he feels ok and is tolerating his medication well and feels they're beneficial. States he is socializing with his peers on the unit well, even those of different races. States he's reading a book "argon" about dragons as he likes that fantasy genre. Per yesterday "stated he's more intelligent than most people even me b/c he know's more. Discuss though's regarding Americans and how "they're invading my country... Jews brought them here." His facts he believes are incorrect and along the lines of severe racist thoughts. Believes women and people of different races are inferior. Has never met a Zoroastrianism person and refuses to speak with any 's on the unit "Why would I do". Pt called me a "stupid women" and stated he's so smart he can cure cancer." States he slept well last night. Per d/c inventory planner is disrespectful toward women, 's on unit, believes all people are "murders." MANAGEMENT PLAN: continue plan, invega sustenna for noncompliance in future pending tolerance Medications: invega 3mg bid zyprexa 10mg q4hr prn anxiety/agitation vistaril 25mg q6hr prn anxiety TIME SPENT: 30 minutes. Vital Signs Vital Signs Date Time Temp Pulse Resp B/P (MAP) Pulse Ox O2 Delivery O2 Flow Rate FiO2 08/11/19 07:00 98.3 70 14 100/51 (67) 08/09/19 08:12 Room Air 08/08/19 22:17 97 Current Medications Current Medications Medications (Trade) Dose Ordered Sig/Lorenza Route PRN Reason Start Time Stop Time Status Last Admin Dose Admin Acetaminophen (Tylenol Tab) 650 mg Q6HP PRN PO HEADACHE or DISCOMFORT 08/08/19 20:45 Al Hydrox/Mg Hydrox/Simethicone (Mylanta) 30 ml Q4HP PRN PO HEARTBURN/INDIGESTION 08/08/19 20:45 Fluoxetine HCl (PROzac) 30 mg DAILY PO 08/09/19 09:00 08/11/19 08:30 Home Med (Med Rec Complete!) ASDIRECTED XX 08/08/19 21:15 08/08/19 21:18 DC Hydroxyzine HCl (Atarax) 50 mg Q6HP PRN PO ANXIETY/AGITATION 08/08/19 21:00 Lurasidone HCl (Latuda) 20 mg DAILY@08 PO 08/09/19 08:00 08/09/19 11:49 DC Magnesium Hydroxide (Milk Of Magnesia) 30 ml DAILYPRN PRN PO CONSTIPATION 08/08/19 20:45 Nicotine (Nicoderm Cq 21mg) 1 patch DAILY PRN TD Nicotine withdrawal 08/08/19 20:45 Olanzapine (ZyPREXA) 10 mg Q4HP PRN PO anxiety/agitation 08/09/19 14:45 08/09/19 14:54 Paliperidone (Invega) 3 mg BID PO 08/09/19 21:00 08/11/19 08:29 Trazodone HCl (Desyrel) 100 mg QHSP PRN PO INSOMNIA 08/08/19 20:45 Allergies Coded Allergies: atomoxetine (Verified Adverse Reaction, Severe, TACHYCARDIA, 03/19/19) aripiprazole (Verified Adverse Reaction, Mild, HAULLICINATION, 03/19/19) escitalopram (Verified Adverse Reaction, Mild, ALTERED MENTAL STATUS, 03/19/19) CALE WARD DO Aug 11, 2019 11:06 am
[2019-08-11 16:19] VITALS: BP 102/56
[2019-08-12 06:00] VITALS: BP 155/64
[2019-08-12] MEDS: PALIPERIDONE 3 MG ER TAB (INVEGA) PO SCH ×2 (08:16→21:51)
[2019-08-12] MEDS: FLUoxetine 10 MG CAP PO SCH (08:17)
[2019-08-12 16:22] VITALS: BP 136/83
[2019-08-13 05:56] VITALS: BP 142/70
[2019-08-13] MEDS: PALIPERIDONE 3 MG ER TAB (INVEGA) PO SCH ×2 (09:02→21:51)
[2019-08-13] MEDS: FLUoxetine 10 MG CAP PO SCH (09:03)
--- NOTE | 2019-08-13 09:46 | MHIPN ---
DATE OF SERVICE: 08/12/2019 VITAL SIGNS: Temperature 100, pulse 80, respirations 16, blood pressure 115/64. CURRENT MEDICATION: - Invega 3 mg twice daily - Zyprexa 10 mg every 4 hours as needed - Prozac 30 mg daily HISTORY OF PRESENT ILLNESS: This is a 24-year-old white male being treated by Dr. Jamison. He has a history of depression with borderline and antisocial personality disorder. He has had several recent [facility] admissions. Patient has had delusional beliefs about satan in the past and conspiratorial views about various ethnic populations, for example, Jews. Patient claims be is conservative and cannot attend [employer] as all the other students are liberals. Patient is isolating at home. Patient denies affective symptoms but is likely covering. MENTAL STATUS EXAMINATION: Grooming and hygiene appear good. Patient's style is narcissistic. Denies dysthymia or depression. No signs of qing. Patient describes grandiose and prejudicial beliefs. He denies hallucinations. Insight and judgment appear quite impaired. No signs of cognitive deficits. 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 History of major depressive disorder. History of cannabis and alcohol use disorder. PLAN: Continue present management.
[2019-08-13 16:10] VITALS: BP 125/64
[2019-08-14 06:40] VITALS: BP 125/59
[2019-08-14] MEDS: PALIPERIDONE 3 MG ER TAB (INVEGA) PO SCH ×3 (09:00→21:00)
[2019-08-14] MEDS: FLUoxetine 10 MG CAP PO SCH ×2 (09:00→10:30)
[2019-08-14] MEDS ORDERED: PALIPERIDONE PALMITATE 156MG/1ML INJ(INVEGA)(J2426 PER 1MG)(INFUS OUTPT) IM ONE (12:00)
--- NOTE | 2019-08-14 12:00 | MHIPNPDOC ---
[facility] Progress Note Progress Note DATE OF SERVICE: 08/14/19 HISTORY: Patient is a 24 -year-old , male, with a history of depression and borderline/antisocial PD last admitted [facility] 04/18/19 who was referred to ED by KB after pt had seen therapist there and appear internally preoccupied with HI toward "Jews and their community," fixated on races and religions. Once home pt mother called crisis line requesting a "mental health eval b/c my son isn't doing well." Pt in ED stated he believed his mother called the police and not the crisis line b/c she's ashamed of the things she's done and is blaming him for it. Pt seen and states he's here b/c "my mother thoughts I wasn't doing well" b/c she told him she didn't love his father anymore and "called you guys to blame it on me." Denies that he having SI/HI and states he's been doing well since the last time he was here. States that when he was talking about the Illuminate which he states is a real thing, ranting and raving about. Also stated that 'Armando Hull" is a el worth $10 trillion and "the [employer] of [place] pimp their children out." He then went on to tell me that Jews based on their bible that all non-Rastafarian are cattle and that Jews believe they are better than non-Jews, are satans b/c their stare is a satan worshiping star, then states he's part of the occult and things due to being in the occult he is all knowing and better than anyone not in the occult specifically Jews and woman. His judgement and insight are very poor and he's comes across very superior and egotistical. VITAL SIGNS: See below. NEW TEST RESULTS: See below CURRENT MEDICATIONS: See below. MENTAL STATUS EXAMINATION: General Appearance: well groomed, appears stated age, hospital scrubs/clothing Build: average Demeanor: more cooperative and respectful when seen Eye Contact: average Activity: average Behavior: more cooperative and respectful when seen Speech: clear, spontaneous, reg/rate,rhythm,volume Mood: euthymic Mood "alright" Affect: full, inappropriate, congruent, other (less superior, egotistical) Thought Process: associative, other (less illogical thoughts regarding Jews, women, the occult), very racist thoughts Thought Content (Delusions): denies SI, HI, AVH, delusions (improved grandiose predominatly anglican oriented toward a belief of being superior to Jews and women, belief Jews have a "secret" holy book that they keep from non-Jews that dictates non-Jews being cattle.) Thought Content (Other): improved preoccupied, obsessional, ideas of reference Thought Content (Aggressive): none reported Perception (Hallucinations): none reported Perception (Other): none reported Cognition (Impairment of): none reported Cognition(Intelligence Est.): average Oriented: Awake, Alert, Oriented times three Insight: poor Judgment: Poor Psychosis: improved Associations, Psychotic Perceptions DIAGNOSES: Grandiose/Hinduism Delusional D/O Hx of MDD Hx of cannabis/alcohol use d/o ASSESSMENT:Pt seen and states he's going well and doesn't think he's been disruptive in groups or with his peers, making racist comments toward them. States he's tolerating his invega and feels it's helpful. Recommended to pt that he take invega sustenna for med compliance which he is not compliant on his oral medication at home. States he's ok with taking the pills and again highly recommending to take im and told will order it for him to take this evening after he's had some time to think about. Risks/benefits discussed. Seen in group today and appears cooperative. More cooperative and respectful with me today when seen. States his mood is "alright." States he is socializing with his peers on the unit well, even those of different races. Appears to have improved racist delusions and behavior on the unit with invega. States he slept well last night. Per d/c equipment planner is disrespectful toward women, 's on unit, believes all people are "murders" still. MANAGEMENT PLAN: continue plan, invega sustenna 156mg im today, d/c oral invega once given Medications: invega 3mg bid zyprexa 10mg q4hr prn anxiety/agitation vistaril 25mg q6hr prn anxiety invega sustenna 156mg im today TIME SPENT: 30 minutes. Vital Signs Vital Signs Date Time Temp Pulse Resp B/P (MAP) Pulse Ox O2 Delivery O2 Flow Rate FiO2 08/14/19 06:40 99.1 78 16 125/59 (81) 08/09/19 08:12 Room Air 08/08/19 22:17 97 Current Medications Current Medications Medications (Trade) Dose Ordered Sig/Lorenza Route PRN Reason Start Time Stop Time Status Last Admin Dose Admin Acetaminophen (Tylenol Tab) 650 mg Q6HP PRN PO HEADACHE or DISCOMFORT 08/08/19 20:45 Al Hydrox/Mg Hydrox/Simethicone (Mylanta) 30 ml Q4HP PRN PO HEARTBURN/INDIGESTION 08/08/19 20:45 Fluoxetine HCl (PROzac) 30 mg DAILY PO 08/09/19 09:00 08/14/19 10:30 Home Med (Med Rec Complete!) ASDIRECTED XX 08/08/19 21:15 08/08/19 21:18 DC Hydroxyzine HCl (Atarax) 50 mg Q6HP PRN PO ANXIETY/AGITATION 08/08/19 21:00 Lurasidone HCl (Latuda) 20 mg DAILY@08 PO 08/09/19 08:00 08/09/19 11:49 DC Magnesium Hydroxide (Milk Of Magnesia) 30 ml DAILYPRN PRN PO CONSTIPATION 08/08/19 20:45 Nicotine (Nicoderm Cq 21mg) 1 patch DAILY PRN TD Nicotine withdrawal 08/08/19 20:45 Olanzapine (ZyPREXA) 10 mg Q4HP PRN PO anxiety/agitation 08/09/19 14:45 08/09/19 14:54 Paliperidone (Invega) 3 mg BID PO 08/09/19 21:00 08/14/19 10:31 Trazodone HCl (Desyrel) 100 mg QHSP PRN PO INSOMNIA 08/08/19 20:45 Allergies Coded Allergies: atomoxetine (Verified Adverse Reaction, Severe, TACHYCARDIA, 03/19/19) aripiprazole (Verified Adverse Reaction, Mild, HAULLICINATION, 03/19/19) escitalopram (Verified Adverse Reaction, Mild, ALTERED MENTAL STATUS, 03/19/19) CALE WARD DO Aug 14, 2019 12:00 pm
[2019-08-14 15:27] VITALS: BP 151/85
[2019-08-15 06:48] VITALS: BP 129/57
[2019-08-15] MEDS: FLUoxetine 10 MG CAP PO SCH (08:22)
[2019-08-15] MEDS: PALIPERIDONE 3 MG ER TAB (INVEGA) PO SCH ×3 (09:00→20:52)
--- NOTE | 2019-08-15 10:03 | MHIPNPDOC ---
[facility] Progress Note Progress Note DATE OF SERVICE: 08/15/19 HISTORY: Patient is a 24 -year-old , male, with a history of depression and borderline/antisocial PD last admitted [facility] 04/18/19 who was referred to ED by KB after pt had seen therapist there and appear internally preoccupied with HI toward "Jews and their community," fixated on races and religions. Once home pt mother called crisis line requesting a "mental health eval b/c my son isn't doing well." Pt in ED stated he believed his mother called the police and not the crisis line b/c she's ashamed of the things she's done and is blaming him for it. Pt seen and states he's here b/c "my mother thoughts I wasn't doing well" b/c she told him she didn't love his father anymore and "called you guys to blame it on me." Denies that he having SI/HI and states he's been doing well since the last time he was here. States that when he was talking about the Illuminate which he states is a real thing, ranting and raving about. Also stated that 'Armando Hull" is a el worth $10 trillion and "the [employer] [place] pimp their children out." He then went on to tell me that Jews based on their bible that all non-Jainism are cattle and that Jews believe they are better than non-Jews, are satans b/c their stare is a satan worshiping star, then states he's part of the occult and things due to being in the occult he is all knowing and better than anyone not in the occult specifically Jews and woman. His judgement and insight are very poor and he's comes across very superior and egotistical. VITAL SIGNS: See below. NEW TEST RESULTS: See below CURRENT MEDICATIONS: See below. MENTAL STATUS EXAMINATION: General Appearance: well groomed, appears stated age, hospital scrubs/clothing Build: average Demeanor: more cooperative and respectful when seen Eye Contact: average Activity: average Behavior: more cooperative and respectful when seen Speech: clear, spontaneous, reg/rate,rhythm,volume Mood: euthymic Mood "alright" Affect: full, appropriate, congruent, other (less superior, egotistical) Thought Process: less associative, other (less illogical thoughts regarding Jews, women, the occult), very racist thoughts Thought Content (Delusions): denies SI, HI, AVH, delusions (improved grandiose predominantly denominational oriented toward a belief of being superior to Jews and women, belief Jews have a "secret" holy book that they keep from non-Jews that dictates non-Jews being cattle.) Thought Content (Other): improved preoccupied, obsessional, ideas of reference Thought Content (Aggressive): none reported Perception (Hallucinations): none reported Perception (Other): none reported Cognition (Impairment of): none reported Cognition(Intelligence Est.): average Oriented: Awake, Alert, Oriented times three Insight: poor Judgment: Poor Psychosis: improved Associations, Psychotic Perceptions DIAGNOSES: Grandiose/Nondenominational Delusional D/O Hx of MDD Hx of cannabis/alcohol use d/o ASSESSMENT:Pt seen and states he's doing ok but wonders why he didn't get his oral invega last night. Per med rec pt refusing his invega sustenna and nightly oral invega. Talked to pt today about taking invega sustenna im and more agreeable to doing it. Will reorder so he can get it today and then his oral invega can be discontinued. Per staff pt is less disruptive in groups or with his peers, making racist comments toward them. States he's tolerating his oral invega and feels it's helpful. Seen in group today and appears cooperative, appears to enjoy drawing and coloring. Cooperative and respectful with me today when seen. States his mood is "ok." States he is socializing with his peers on the unit well, even those of different races. Appears to have improved racist delusions and behavior on the unit with invega. States he slept well last night. Per d/c planner scheduler is disrespectful toward women, 's on unit, believes all people are "murders" still. MANAGEMENT PLAN: continue plan, invega sustenna 156mg im today, d/c oral invega once given Medications: invega 3mg bid zyprexa 10mg q4hr prn anxiety/agitation vistaril 25mg q6hr prn anxiety invega sustenna 156mg im today TIME SPENT: 30 minutes. Vital Signs Vital Signs Date Time Temp Pulse Resp B/P (MAP) Pulse Ox O2 Delivery O2 Flow Rate FiO2 08/15/19 06:48 98.0 56 14 129/57 (81) 08/09/19 08:12 Room Air Current Medications Current Medications Medications (Trade) Dose Ordered Sig/Lorenza Route PRN Reason Start Time Stop Time Status Last Admin Dose Admin Acetaminophen (Tylenol Tab) 650 mg Q6HP PRN PO HEADACHE or DISCOMFORT 08/08/19 20:45 Al Hydrox/Mg Hydrox/Simethicone (Mylanta) 30 ml Q4HP PRN PO HEARTBURN/INDIGESTION 08/08/19 20:45 Fluoxetine HCl (PROzac) 30 mg DAILY PO 08/09/19 09:00 08/15/19 08:22 Home Med (Med Rec Complete!) ASDIRECTED XX 08/08/19 21:15 08/08/19 21:18 DC Hydroxyzine HCl (Atarax) 50 mg Q6HP PRN PO ANXIETY/AGITATION 08/08/19 21:00 Lurasidone HCl (Latuda) 20 mg DAILY@08 PO 08/09/19 08:00 08/09/19 11:49 DC Magnesium Hydroxide (Milk Of Magnesia) 30 ml DAILYPRN PRN PO CONSTIPATION 08/08/19 20:45 Nicotine (Nicoderm Cq 21mg) 1 patch DAILY PRN TD Nicotine withdrawal 08/08/19 20:45 Olanzapine (ZyPREXA) 10 mg Q4HP PRN PO anxiety/agitation 08/09/19 14:45 08/09/19 14:54 Paliperidone (Invega) 3 mg BID PO 08/09/19 21:00 08/14/19 10:31 Trazodone HCl (Desyrel) 100 mg QHSP PRN PO INSOMNIA 08/08/19 20:45 Allergies Coded Allergies: atomoxetine (Verified Adverse Reaction, Severe, TACHYCARDIA, 03/19/19) aripiprazole (Verified Adverse Reaction, Mild, HAULLICINATION, 03/19/19) escitalopram (Verified Adverse Reaction, Mild, ALTERED MENTAL STATUS, 03/19/19) CALE WARD DO Aug 15, 2019 10:03 am
[2019-08-15] MEDS ORDERED: PALIPERIDONE PALMITATE 156MG/1ML INJ(INVEGA)(J2426 PER 1MG)(INFUS OUTPT) IM ONE (12:00)
[2019-08-15 18:12] VITALS: BP 144/80
[2019-08-16 06:33] VITALS: BP 124/57
--- NOTE | 2019-08-16 09:14 | MHIPNPDOC ---
[facility] Progress Note Progress Note DATE OF SERVICE: 08/16/19 HISTORY: Patient is a 24 -year-old , male, with a history of depression and borderline/antisocial PD last admitted [facility] 04/18/19 who was referred to ED by [facility] after pt had seen therapist there and appear internally preoccupied with HI toward "Jews and their community," fixated on races and religions. Once home pt mother called crisis line requesting a "mental health eval b/c my son isn't doing well." Pt in ED stated he believed his mother called the police and not the crisis line b/c she's ashamed of the things she's done and is blaming him for it. Pt seen and states he's here b/c "my mother thoughts I wasn't doing well" b/c she told him she didn't love his father anymore and "called you guys to blame it on me." Denies that he having SI/HI and states he's been doing well since the last time he was here. States that when he was talking about the Illuminate which he states is a real thing, ranting and raving about. Also stated that 'Armando Hull" is a el worth $10 trillion and "the [employer] [place] pimp their children out." He then went on to tell me that Jews based on their bible that all non-Mosque are cattle and that Jews believe they are better than non-Jews, are satans b/c their stare is a satan worshiping star, then states he's part of the occult and things due to being in the occult he is all knowing and better than anyone not in the occult specifically Jews and woman. His judgement and insight are very poor and he's comes across very superior and egotistical. VITAL SIGNS: See below. NEW TEST RESULTS: See below CURRENT MEDICATIONS: See below. MENTAL STATUS EXAMINATION: General Appearance: well groomed, appears stated age, hospital scrubs/clothing Build: average Demeanor: more cooperative and respectful when seen Eye Contact: average Activity: average Behavior: more cooperative and respectful when seen Speech: clear, spontaneous, reg/rate,rhythm,volume Mood: euthymic Mood "ok" Affect: full, appropriate, congruent, other (less superior, egotistical) Thought Process: less associative, other (less illogical thoughts regarding Jews, women, the occult), very racist thoughts Thought Content (Delusions): denies SI, HI, AVH, delusions (improved grandiose predominantly hoahaoism oriented toward a belief of being superior to Jews and women, belief Jews have a "secret" holy book that they keep from non-Jews that dictates non-Jews being cattle.) Thought Content (Other): improved preoccupied, obsessional, ideas of reference Thought Content (Aggressive): none reported Perception (Hallucinations): none reported Perception (Other): none reported Cognition (Impairment of): none reported Cognition(Intelligence Est.): average Oriented: Awake, Alert, Oriented times three Insight: poor Judgment: Poor Psychosis: improved Associations, Psychotic Perceptions DIAGNOSES: 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 Spoke to pt about taking invega sustenna today for medication compliance as that is mostly why he's here is b/c of his schizophrenic symptoms returning secondary noncompliance and having to be hospitalized Finally agreeable to taking today. Will reorder so he can get it today and then his oral invega can be discontinued. States he's tolerating his oral invega and feels it's helpful. He is attending groups, finding them helpful, and per staff is cooperative during them. Cooperative and respectful with me today when seen. States his mood is "ok." States he is socializing with his peers on the unit well, even those of different races. Continues to have racist delusions and behavior on the unit. States he slept well last night. 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 MANAGEMENT PLAN: continue plan, invega sustenna 156mg im today, d/c oral invega once given Medications: invega 3mg bid zyprexa 10mg q4hr prn anxiety/agitation vistaril 25mg q6hr prn anxiety invega sustenna 156mg im today TIME SPENT: 30 minutes. Vital Signs Vital Signs Date Time Temp Pulse Resp B/P (MAP) Pulse Ox O2 Delivery O2 Flow Rate FiO2 08/16/19 06:33 98.3 61 12 124/57 (79) Current Medications Current Medications Medications (Trade) Dose Ordered Sig/Lorenza Route PRN Reason Start Time Stop Time Status Last Admin Dose Admin Acetaminophen (Tylenol Tab) 650 mg Q6HP PRN PO HEADACHE or DISCOMFORT 08/08/19 20:45 Al Hydrox/Mg Hydrox/Simethicone (Mylanta) 30 ml Q4HP PRN PO HEARTBURN/INDIGESTION 08/08/19 20:45 Fluoxetine HCl (PROzac) 30 mg DAILY PO 08/09/19 09:00 08/15/19 08:22 Home Med (Med Rec Complete!) ASDIRECTED XX 08/08/19 21:15 08/08/19 21:18 DC Hydroxyzine HCl (Atarax) 50 mg Q6HP PRN PO ANXIETY/AGITATION 08/08/19 21:00 Lurasidone HCl (Latuda) 20 mg DAILY@08 PO 08/09/19 08:00 08/09/19 11:49 DC Magnesium Hydroxide (Milk Of Magnesia) 30 ml DAILYPRN PRN PO CONSTIPATION 08/08/19 20:45 Nicotine (Nicoderm Cq 21mg) 1 patch DAILY PRN TD Nicotine withdrawal 08/08/19 20:45 Olanzapine (ZyPREXA) 10 mg Q4HP PRN PO anxiety/agitation 08/09/19 14:45 08/09/19 14:54 Paliperidone (Invega) 3 mg BID PO 08/09/19 21:00 08/15/19 20:52 Trazodone HCl (Desyrel) 100 mg QHSP PRN PO INSOMNIA 08/08/19 20:45 Allergies Coded Allergies: atomoxetine (Verified Adverse Reaction, Severe, TACHYCARDIA, 03/19/19) aripiprazole (Verified Adverse Reaction, Mild, HAULLICINATION, 03/19/19) escitalopram (Verified Adverse Reaction, Mild, ALTERED MENTAL STATUS, ) CALE WARD DO Aug 16, 2019 9:14 am
[2019-08-16] MEDS: PALIPERIDONE 3 MG ER TAB (INVEGA) PO SCH ×2 (09:32→20:00)
[2019-08-16] MEDS: FLUoxetine 10 MG CAP PO SCH (09:32)
[2019-08-16] MEDS ORDERED: PALIPERIDONE PALMITATE 156MG/1ML INJ(INVEGA)(J2426 PER 1MG)(INFUS OUTPT) IM ONE (11:00)
[2019-08-16] MEDS ORDERED: PALIPERIDONE PALMITATE 156MG/1ML INJ(INVEGA)(J2426)(FREE PSY INPT ONLY) IM ONE (11:00)
[2019-08-16 19:07] VITALS: BP 139/88
[2019-08-17 06:38] VITALS: BP 138/77
[2019-08-17] MEDS ORDERED: HYDR50TA70 PO (08:47)
[2019-08-17] MEDS ORDERED: INVE156I IM (08:47)
[2019-08-17] MEDS ORDERED: FLUO10CA8 PO (08:47)
[2019-08-17] MEDS ORDERED: TRAZ-252 PO (08:47)
--- NOTE | 2019-08-17 08:49 | MHDSPDOC ---
[facility] Discharge Summary Discharge Summary DATE OF ADMISSION: Aug 08, 2019 at 8:36 pm DATE OF DISCHARGE: Aug 17, 2019 DISCHARGE DIAGNOSES: Paranoid Schizophrenia Hx of MDD Hx of cannabis/alcohol use d/o REASON FOR ADMISSION: Patient is a 24 -year-old , male, with a history of depression and borderline/antisocial PD last admitted [facility] 04/18/19 who was referred to ED by [facility] after pt had seen therapist there and appear internally preoccupied with HI toward "Jews and their community," fixated on races and religions. Once home pt mother called crisis line requesting a "mental health eval b/c my son isn't doing well." Pt in ED stated he believed his mother called the police and not the crisis line b/c she's ashamed of the things she's done and is blaming him for it. Pt seen and states he's here b/c "my mother thoughts I wasn't doing well" b/c she told him she didn't love his father anymore and "called you guys to blame it on me." Denies that he having SI/HI and states he's been doing well since the last time he was here. States that when he was talking about the Illuminate which he states is a real thing, ranting and raving about. Also stated that 'Armando Hull" is a el worth $10 trillion and "the [employer] pimp their children out." He then went on to tell me that Jews based on their bible that all non-Islam are cattle and that Jews believe they are better than non-Jews, are satans b/c their stare is a satan worshiping star, then states he's part of the occult and things due to being in the occult he is all knowing and better than anyone not in the occult specifically Jews and woman. His judgement and insight are very poor and he's comes across very superior and egotistical. CONSULTANTS INVOLVED:none TREATMENT AND PROGRESS ON THE UNIT : Pt was admitted to [facility], seen for psychiatric assessment and restarted on his outpatient medication prozac 30mg daily for mood and started on invega 3mg bid for schizophrenia that he tolerated well and found beneficial so he was given invega sustenna 156mg im x1 for medication compliance that he tolerated well and found beneficial too. He was p rovided vistaril 50mg q6hr prn anxiety and trazodone 100mg qhs prn insomnia. Pt found his medications beneficial and tolerated them well. He attended groups daily during his stay. His symptoms improved with treatment. He became more cooperative and respectful of staff and his peers with treatment, making less racist remarks. On day of discharge he denied depression, anxiety, insomnia, SI/HI, hallucinations, delusions. He was discharged home with his mother with follow-up at [facility]. He felt safe for discharge. DISCHARGE ASSESSMENT: Pt seen and states he's doing "good" and is looking forward to going home today with his mother. He took invega sustenna yesterday for medication noncompliance that he tolerated well and found beneficial. He is attending groups, finding them helpful, and per staff is cooperative during them. Cooperative and respectful with me today when seen. States he is socializing with his peers on the unit well, even those of different races. Continues to have some baseline racist delusions and behavior on the unit that should improve with outpatient treatment and therapy as they have greatly improved here with treatment. States he slept well last night. He denies depression, anxiety, insomnia, SI/HI, hallucinations, delusions. He feels safe to discharge home with his mother today. MENTAL STATUS EXAMINATION ON DISCHARGE: General Appearance: well groomed, appears stated age, own clothing Build: average Demeanor: more cooperative and respectful when seen Eye Contact: average Activity: average Behavior: more cooperative and respectful when seen Speech: clear, spontaneous, reg/rate,rhythm,volume Mood: euthymic Mood "good" Affect: full, appropriate, congruent Thought Process: appropriate, baseline racist thoughts Thought Content (Delusions): denies SI, HI, AVH, delusions Thought Content (Other): none reported Thought Content (Aggressive): none reported Perception (Hallucinations): none reported Perception (Other): none reported Cognition (Impairment of): none reported Cognition(Intelligence Est.): average Oriented: Awake, Alert, Oriented times three Insight: fair-good Judgment: fair-good Psychosis: none reported MEDICATIONS ON DISCHARGE: vistaril 50mg q6hr prn anxiety invega sustenna 156mg im qmonthly trazodone 100mg qhs prn insomnia prozac 30mg daily PLAN/FOLLOWUP ARRANGEMENTS: D/c home with mother with follow-up at [facility]. The amount of time spent in the coordination of care for this patient was approximately 30 minutes. Vital Signs/I&Os Vital Signs Date Time Temp Pulse Resp B/P (MAP) Pulse Ox O2 Delivery O2 Flow Rate FiO2 08/17/19 06:38 97.9 138 77 138/77 (97) Room Air Medications No Active Prescriptions or Reported Meds Allergies Coded Allergies: atomoxetine (Verified Adverse Reaction, Severe, TACHYCARDIA, 03/19/19) aripiprazole (Verified Adverse Reaction, Mild, HAULLICINATION, 03/19/19) escitalopram (Verified Adverse Reaction, Mild, ALTERED MENTAL STATUS, 03/19/19) CALE WARD DO Aug 17, 2019 8:49 am
[2019-08-17] MEDS: PALIPERIDONE 3 MG ER TAB (INVEGA) PO SCH (09:58)
[2019-08-17] MEDS: FLUoxetine 10 MG CAP PO SCH (09:58)
== END 2019-08-17 12:15 | disposition home or self-care (01) | DRG 750 ==
LOC: M ED 15:35 → M ED INP 20:36 → M PSY 22:00
PROVIDERS: ADMIT Psychiatry & Neurology Psychiatry; ATTEND Psychiatry & Neurology Psychiatry
DX: F20.0 Paranoid schizophrenia (principal); F60.3 Borderline personality disorder; F10.10 Alcohol abuse, uncomplicated; F12.90 Cannabis use, unspecified, uncomplicated; F60.2 Antisocial personality disorder; Z88.8 Allergy status to other drugs, medicaments and biological substances

== ENCOUNTER 2021-12-01 17:12 | Emergency (ER) | payer BC, MEDICAID ==
[~2021-12-01 17:12] MED LIST changes: +FLUO-96 PO; +FLUO10CA18 PO; -FLUO10CA8 PO; -FLUO20CA8 PO; +HYDR50TA70 PO; +INVE156I IM; +RISP-9 PO; -RISP2TAB3 PO; -TRAZ-163 PO; +TRAZ-252 PO; +TRAZ-257 PO
[2021-12-01] MEDS ORDERED: HOME MED LIST COMPLETE! XX SCH (19:45)
[2021-12-02 02:54] LABS: HEMATOCRIT 43.5 % (42.0-52.0); HEMOGLOBIN 15.4 g/dl (13.5-17.5); MEAN CORPUSCULAR HEMOGLOBIN 30.4 pg (27.0-33.0); MEAN CORPUSCULAR HGB CONC 35.4 g/dl (32.0-36.5); MEAN CORPUSCULAR VOLUME 85.8 fl (80.0-96.0); PLATELET COUNT, AUTOMATED 260 10^3/uL (150-450); RED BLOOD COUNT 5.07 10^6/uL (4.30-6.10); WHITE BLOOD COUNT 7.1 10^3/uL (4.0-10.0)
[2021-12-02 03:35] LABS: AMPHETAMINES LEVEL URINE NEGATIVE (NEGATIVE); BARBITURATES URINE NEGATIVE (NEGATIVE); BENZODIAZEPINES URINE NEGATIVE (NEGATIVE); CANNABINOIDS URINE POSITIVE (NEGATIVE); COCAINE METABOLITE URINE NEGATIVE (NEGATIVE); METHADONE URINE NEGATIVE (NEGATIVE); OPIATES URINE NEGATIVE (NEGATIVE); PHENCYCLIDINE URINE NEGATIVE (NEGATIVE)
[2021-12-02 04:05] LABS: ACETAMINOPHEN LEVEL < 2.0 UG/ML (10.0-30.0); ALBUMIN 4.3 GM/DL (3.2-5.2); ALT/SGPT 18 U/L (12-78); BILIRUBIN,DIRECT 0.3 MG/DL (0.0-0.2); BLOOD UREA NITROGEN 10 MG/DL (7-18); CALCIUM LEVEL 9.3 MG/DL (8.5-10.1); CARBON DIOXIDE LEVEL 31 MEQ/L (21-32); CHLORIDE LEVEL 109 MEQ/L (98-107); CREATININE FOR GFR 0.79 MG/DL (0.70-1.30); ETHYL ALCOHOL (ETHANOL) < 0.003 % (0.000-0.010); GLOMERULAR FILTRATION RATE > 60.0 (>60); GLUCOSE, FASTING 88 MG/DL (70-100); POTASSIUM SERUM 3.8 MEQ/L (3.5-5.1); SALICYLATE LEVEL < 1.7 MG/DL (5.0-30.0); SODIUM LEVEL 142 MEQ/L (136-145); TOTAL PROTEIN 7.3 GM/DL (6.4-8.2)
[2021-12-02 06:03] LABS: RSV AMPLIFICATION NEGATIVE (NEGATIVE)
[2021-12-02 14:08] VITALS: BP 105/79
== END 2021-12-02 15:00 | disposition home or self-care (01) ==
LOC: M ED 17:12
DX: F43.20 Adjustment disorder, unspecified (principal); F15.10 Other stimulant abuse, uncomplicated; Z88.8 Allergy status to other drugs, medicaments and biological substances; F17.210 Nicotine dependence, cigarettes, uncomplicated; F12.20 Cannabis dependence, uncomplicated

== ENCOUNTER 2022-01-01 18:01 | Inpatient (IN) | payer BC, MEDICAID ==
[2022-01-01 19:50] LABS: HEMATOCRIT 45.7 % (42.0-52.0); MEAN CORPUSCULAR HEMOGLOBIN 30.7 pg (27.0-33.0); MEAN CORPUSCULAR VOLUME 87.7 fl (80.0-96.0); PLATELET COUNT, AUTOMATED 297 10^3/uL (150-450); RED BLOOD COUNT 5.21 10^6/uL (4.30-6.10); WHITE BLOOD COUNT 8.9 10^3/uL (4.0-10.0)
[2022-01-01 20:08] LABS: AMPHETAMINES LEVEL URINE NEGATIVE (NEGATIVE); BARBITURATES URINE NEGATIVE (NEGATIVE); BENZODIAZEPINES URINE NEGATIVE (NEGATIVE); CANNABINOIDS URINE POSITIVE (NEGATIVE); COCAINE METABOLITE URINE NEGATIVE (NEGATIVE); METHADONE URINE NEGATIVE (NEGATIVE); OPIATES URINE NEGATIVE (NEGATIVE); PHENCYCLIDINE URINE NEGATIVE (NEGATIVE)
[2022-01-01 20:22] LABS: RSV AMPLIFICATION NEGATIVE (NEGATIVE)
[2022-01-01 20:35] LABS: ACETAMINOPHEN LEVEL < 2.0 UG/ML (10.0-30.0); ALBUMIN 4.7 GM/DL (3.2-5.2); ALT/SGPT 21 U/L (12-78); BILIRUBIN,DIRECT 0.3 MG/DL (0.0-0.2); BILIRUBIN,TOTAL 1.5 MG/DL (0.2-1.0); BLOOD UREA NITROGEN 17 MG/DL (7-18); CALCIUM LEVEL 9.4 MG/DL (8.5-10.1); CARBON DIOXIDE LEVEL 29 MEQ/L (21-32); CHLORIDE LEVEL 107 MEQ/L (98-107); CREATININE FOR GFR 1.03 MG/DL (0.70-1.30); ETHYL ALCOHOL (ETHANOL) < 0.003 % (0.000-0.010); GLOMERULAR FILTRATION RATE > 60.0 (>60); GLUCOSE, FASTING 78 MG/DL (70-100); POTASSIUM SERUM 4.2 MEQ/L (3.5-5.1); SALICYLATE LEVEL < 1.7 MG/DL (5.0-30.0); SODIUM LEVEL 141 MEQ/L (136-145); THYROID STIMULATING HORMONE 0.929 uIU/ML (0.358-3.740); TOTAL PROTEIN 7.7 GM/DL (6.4-8.2)
[2022-01-01] MEDS ORDERED: HOME MED LIST COMPLETE! XX SCH (23:40)
[2022-01-02] MEDS ORDERED: LORazepam 2 MG TAB PO ONE (02:20)
[2022-01-02] MEDS ORDERED: OLANZapine INTRAMUSCULAR 10MG VIAL IM ONE (13:45)
[2022-01-02] MEDS ORDERED: LORazepam 2 MG/ML VIAL IM ONE (13:45)
[2022-01-02] MEDS ORDERED: MOM 30ML SUSPENSION UDC PO PRN (15:15)
[2022-01-02] MEDS ORDERED: ACETAMINOPHEN TAB 650MG DOSE (2X325MG) PO PRN (15:15)
[2022-01-02] MEDS ORDERED: MAALOX 30 ML SUSP *UDC PO PRN (15:15)
[2022-01-02 18:45] VITALS: BP 134/88
[2022-01-03 06:54] VITALS: BP 130/60
[2022-01-03 18:56] VITALS: BP 137/80
[2022-01-03] MEDS: traZODone 50 MG TAB PO PRN (23:38)
[2022-01-04] MEDS: LORazepam 1 MG TAB PO PRN ×2 (01:13→21:38)
[2022-01-04 06:00] VITALS: BP 128/69
[2022-01-04] MEDS: traZODone 50 MG TAB PO PRN (21:38)
[2022-01-05 06:47] VITALS: BP 111/61
[2022-01-05] MEDS ORDERED: traZODone 100 MG TAB PO PRN (13:45)
[2022-01-05 16:33] VITALS: BP 126/79
[2022-01-06] MEDS: LORazepam 1 MG TAB PO PRN (01:34)
[2022-01-06 06:32] VITALS: BP 117/59
[2022-01-06] MEDS: FLUTICASONE PROP 0.05% NASAL SPRAY 16 GM (FLONASE) NARES SCH (09:00)
[2022-01-06] MEDS ORDERED: FLUTISP NARES (11:58)
[2022-01-06] MEDS ORDERED: TRAZ-257 PO (11:58)
[2022-01-06] MEDS ORDERED: HALO5TAB33 PO (11:58)
[2022-01-07] MEDS: LORazepam 1 MG TAB PO PRN (05:00)
[2022-01-07 07:03] VITALS: BP 111/67
[2022-01-07] MEDS ORDERED: BENZTROPINE 0.5 MG TAB PO ONE (08:55)
[2022-01-07] MEDS ORDERED: BENZ0.5T23 PO (08:57)
[2022-01-07] MEDS: FLUTICASONE PROP 0.05% NASAL SPRAY 16 GM (FLONASE) NARES SCH (09:00)
== END 2022-01-07 13:49 | disposition home or self-care (01) | DRG 758 ==
LOC: M ED 18:01 → M ED INP 01-02 15:12 → M PSY 01-02 18:25
PROVIDERS: ADMIT Student in an Organized Health Care Education/Training Program; ATTEND Student in an Organized Health Care Education/Training Program
DX: F63.81 Intermittent explosive disorder (principal); G90.9 Disorder of the autonomic nervous system, unspecified; F84.0 Autistic disorder; R45.851 Suicidal ideations; Z88.8 Allergy status to other drugs, medicaments and biological substances; Z79.899 Other long term (current) drug therapy; J45.909 Unspecified asthma, uncomplicated; Z87.442 Personal history of urinary calculi

== ENCOUNTER 2022-06-04 23:08 | Emergency (ER) | payer BC, MEDICAID ==
[~2022-06-04] VITALS: Ht 175.3 cm; Wt 68.7 kg
[2022-06-04 23:08] VITALS: BP 123/82
[~2022-06-04 23:08] MED LIST changes: +BENZ0.5T23 PO; +FLUTISP NARES; +HALO5TAB33 PO
== END 2022-06-05 03:17 | disposition left against medical advice (07) ==
LOC: M ED 23:08
DX: Z53.21 Procedure and treatment not carried out due to patient leaving prior to being seen by health care provider (principal)

== ENCOUNTER 2023-11-30 05:42 | Emergency (ER) | payer BC, MEDICAID ==
[~2023-11-30] VITALS: Ht 175.3 cm; Wt 68.2 kg
[~2023-11-30 05:42] MED LIST changes: +BENZ0.5T2 PO; -BENZ0.5T23 PO; +RISP-106 PO; -RISP-9 PO
[2023-11-30 05:43] VITALS: BP 129/79; TEMP 98.6; O2SAT 99
[2023-12-01] MEDS ORDERED: FLOM0.4C39 PO (22:41)
[2023-12-01] MEDS ORDERED: PERC5TAB12 PO (22:42)
== END 2023-11-30 05:55 | disposition left against medical advice (07) ==
LOC: M ED 05:42
DX: Z53.21 Procedure and treatment not carried out due to patient leaving prior to being seen by health care provider (principal)

== ENCOUNTER 2023-12-01 16:29 | Emergency (ER) | payer BC, MEDICAID ==
[~2023-12-01] VITALS: Ht 175.3 cm; Wt 73.4 kg
[2023-12-01] MEDS: ACETAMINOPHEN 325 MG TAB PO ONE (18:27)
[2023-12-01] MEDS: NS 1,000 ML IV ONE (20:11)
[2023-12-01] MEDS: KETOROLAC 30 MG/ML 1ML VIAL IV ONE (20:11)
[2023-12-01 20:23] LABS: BASO # 0.1 10^3/uL (0.0-0.2); BASO % 0.4 % (0.0-1.0); EOS # 0.1 10^3/uL (0.0-0.5); EOS % 0.3 % (0.0-3.0); HEMATOCRIT 41.7 % (42.0-52.0); HEMOGLOBIN 14.6 g/dl (13.5-17.5); LYMPH # 1.1 10^3/uL (1.5-5.0); LYMPH % 6.3 % (24.0-44.0); MEAN CORPUSCULAR VOLUME 85.8 fl (80.0-96.0); MONO # 0.7 10^3/uL (0.0-0.8); MONO % 3.9 % (2.0-8.0); NEUTROPHILS # 15.1 10^3/uL (1.5-8.5); NEUTROPHILS % 88.8 % (36.0-66.0); PLATELET COUNT, AUTOMATED 284 10^3/uL (150-450); RED BLOOD COUNT 4.86 10^6/uL (4.30-6.10); WHITE BLOOD COUNT 16.9 10^3/uL (4.0-10.0)
[2023-12-01 20:41] LABS: LIPASE 27 U/L (12-53)
[2023-12-01 20:43] LABS: ALBUMIN 4.3 G/DL (3.2-5.2); ALKALINE PHOSPHATASE 58 U/L (46-116); ALT/SGPT 12 U/L (7.0-40); AST/SGOT 13 U/L (<34); BILIRUBIN,DIRECT 0.3 MG/DL (<0.4); BILIRUBIN,TOTAL 0.9 MG/DL (0.3-1.2); BLOOD UREA NITROGEN 12 MG/DL (9-23); CARBON DIOXIDE LEVEL 25 MMOL/L (20-31); CHLORIDE LEVEL 107 MMOL/L (98-107); CREATININE FOR GFR 1.07 MG/DL (0.70-1.30); GLOMERULAR FILTRATION RATE > 60.0 (>60); GLUCOSE, FASTING 105 MG/DL (60-100); POTASSIUM SERUM 3.8 MMOL/L (3.5-5.1); SODIUM LEVEL 138 MMOL/L (136-145); TOTAL PROTEIN 6.6 G/DL (5.7-8.2)
[2023-12-01] MEDS ORDERED: ISOVUE-370 76% 100ML VIAL As Ordered ONE (20:52)
[2023-12-01] MEDS ORDERED: FLOM0.4C39 PO (22:41)
[2023-12-01] MEDS ORDERED: PERC5TAB12 PO (22:42)
[2023-12-01 22:44] VITALS: BP 136/78; TEMP 97.3; O2SAT 97
[2023-12-01] MEDS: TAMSULOSIN 0.4 MG CAP PO ONE (22:47)
== END 2023-12-01 23:08 | disposition home or self-care (01) ==
LOC: M ED 16:29
DX: N20.1 Calculus of ureter (principal); F20.0 Paranoid schizophrenia; J45.909 Unspecified asthma, uncomplicated; F12.10 Cannabis abuse, uncomplicated; Z87.442 Personal history of urinary calculi; Z88.8 Allergy status to other drugs, medicaments and biological substances; Z88.3 Allergy status to other anti-infective agents; Z79.899 Other long term (current) drug therapy; Z79.83 Long term (current) use of bisphosphonates
CPT/HCPCS: 74177; 80048; 80076; 81001; 83690; 85025; 96361; 96374; 99284; J1885; Q9967